=== PATIENT | female | born 1980 | race Caucasian/White ===

== ENCOUNTER 2019-06-19 17:03 | Emergency (ER) | payer OTHER, SELFPAY ==
[2019-06-19 17:13] VITALS: BP 140/81; PULSE 100; RESP 16; TEMP 37.3; O2SAT 99
--- NOTE | 2019-06-19 17:22 | ED.GENADULT ---
HPI - General Adult General Chief complaint: Dental/Oral Stated complaint: Dental/Mouth pain Time Seen by Provider: 06/19/19 17:22 Source: patient and RN notes reviewed Mode of arrival: ambulatory Limitations: no limitations History of Present Illness HPI narrative: 38-year-old female presents with complaints of diffused dental pain for 30 days. Pain increased over the last 24 hours. Orajel, anbesol, and Tylenol without relief. Denies any drainage. No fever or chills. No jaw swelling. No neck swelling. No limitation with speaking or swallowing. Has history of dental caries. Has not seen a dentist in awhile. No dental trauma. No oral lesions. Exacerbating factors consist of chewing, eating, and drinking. No relieving factors at this time. No dentures or bridges. Tolerating liquids well. Remains active. Ivette denies being , LMP 1 week ago. Some parts of this dictation were generated by voice recognition software and may contain typographical and/or grammatical inaccuracies. Related Data Home Medications Medication Instructions Recorded Confirmed albuterol sulfate [ProAir HFA] 2 puff INHALATION QID 06/19/19 06/19/19 lisinopril 20 mg PO DAILY 06/19/19 06/19/19 nicotine [Nicoderm CQ] 1 patch TRANSDERMAL DAILY 06/19/19 06/19/19 Allergies Allergy/AdvReac Type Severity Reaction Status Date / Time aspirin Allergy Mild Hives Verified 06/19/19 17:19 Penicillins Allergy Mild Hives Verified 06/19/19 17:19 clindamycin Allergy Unknown SEVERE Verified 06/24/17 19:15 VOMITING nitrofurantoin Allergy Unknown Vomiting Verified 06/19/19 17:19 ibuprofen Allergy Hives Verified 06/19/19 17:19 Contrast Media Allergy Mild Difficulty Uncoded 06/19/19 17:19 Breathing Review of Systems Review of Systems: Narrative: CONSTITUTIONAL: Denies fever, chills, sweats. EYES: Denies visual changes, redness, discharge. ENT: Denies rhinorrhea, congestion, sore throat, otalgia. Complains of diffused upper and lower dental pain. CARDIOVASCULAR: Denies chest pain, palpitations, edema. RESPIRATORY: Denies dyspnea, wheezing, cough. GASTROINTESTINAL: Denies abdominal pain, nausea, vomiting, diarrhea. GENITOURINARY: Denies dysuria, hematuria, abnormal discharge. SKIN: Denies rash or itching. MUSCULOSKELETAL: Denies acute back pain, joint pain, or myalgia. NEUROLOGIC: Denies numbness or focal weakness. PSYCHIATRIC: Denies anxiety or depression. All systems reviewed & are unremarkable except as noted in HPI and below. [facility] Past Medical History Medical History (Updated 06/20/19 @ 00:00 by Antonia Dorman) Asthma Hx of migraines Hypertension Surgical History Surgical History (Updated 06/19/19 @ 17:40 by YARELIS Gongora) H/O partial thyroidectomy History of cholecystectomy Family History Family History (Updated 06/19/19 @ 17:41 by YARELIS Gongora) Father Heart disease Brain cancer Grandparent Lung cancer Comments At time of signature, agree with nurse past medical, surgical, social, and family history. There is no relevant family history pertinent to the presenting complaint. Exam Narrative: Exam Narrative: GENERAL: This is a well-nourished, well-developed patient, in no apparent distress. Talks in full sentences ans ambulates with steady gait without dyspnea. HEAD: normocephalic, atraumatic. EYES: PERRL. Sclera clear/white. Vision is grossly intact. EARS: External ears normal, auditory canals clear and without drainage, TMs normal without perforation. Hearing grossly intact. NOSE: External nose normal with no obvious nasal discharge, nares without redness, no rhinorrhea. MOUTH: Multiple partially broken teeth with palak apical swelling, Multiple teeth with tenderness to palpation. No jaw facial swelling, No trismus. Able to open mouth fully. No neck swelling or Elia angina. No abscess to be drained. THROAT: Mucous membranes moist, posterior pharynx clear. NECK: Ne
== END 2019-06-19 18:00 | disposition home or self-care (01) ==
PROVIDERS: Emergency Provider Nurse Practitioner Family; PCP Family Medicine
DX: K08.89 Other specified disorders of teeth and supporting structures (principal); K02.9 Dental caries, unspecified; I10 Essential (primary) hypertension
CPT/HCPCS: 99213; G0463

== ENCOUNTER 2019-07-25 16:25 | Emergency (ER) | payer OTHER, SELFPAY ==
--- NOTE | ~2019-07-25 | XR_ITS ---
EXAMINATION: XR chest 2V 07/25/2019 17:18 INDICATION: Cough PROCEDURE: 2 view chest COMPARISON: 02/26/2012 FINDINGS: The lungs are clear. The cardiomediastinal silhouette is within normal limits. There are no pleural effusions. There is no pneumothorax suspected. IMPRESSION: 1: NO ACUTE CARDIOPULMONARY DISEASE. Reviewed, dictated and finalized at location A.
[2019-07-25 16:38] VITALS: BP 138/91; PULSE 91; RESP 16; TEMP 37.5; O2SAT 99
--- NOTE | 2019-07-25 16:39 | ED.GENADULT ---
HPI - General Adult General Chief complaint: Upper Respiratory Infection Stated complaint: CP Time Seen by Provider: 07/25/19 16:30 Source: patient and RN notes reviewed Mode of arrival: ambulatory Limitations: no limitations History of Present Illness HPI narrative: 38-year-old female presents with concern for cough, chest pain and back pain with coughing. Reports symptoms have been present for approximately a month. Reports persistent rhinorrhea and occasional nasal congestion. Reports symptoms started after she had a dental infection and a tooth pulled. She correlates her cough with this dental infection. Reports she was on a long course of clindamycin for her dental infection, however reports she does not think that it helped. Reports she has not taken any other medications for her symptoms other than her albuterol. Reports she last used her albuterol this morning. Reports a history of asthma. MD complaint: Upper respiratory infection Related Data Home Medications Medication Instructions Recorded Confirmed albuterol sulfate [ProAir HFA] 2 puff INHALATION QID 06/19/19 07/25/19 lisinopril 20 mg PO DAILY 06/19/19 07/25/19 fluticasone propion-salmeterol 2 inh INHALATION Q4-6H PRN 07/25/19 07/25/19 Allergies Allergy/AdvReac Type Severity Reaction Status Date / Time aspirin Allergy Mild Hives Verified 07/25/19 16:53 Penicillins Allergy Mild Hives Verified 07/25/19 16:53 ibuprofen Allergy Hives Verified 07/25/19 16:53 clindamycin AdvReac Unknown SEVERE Verified 07/25/19 16:53 VOMITING nitrofurantoin AdvReac Unknown Vomiting Verified 07/25/19 16:53 Contrast Media Allergy Mild Difficulty Uncoded 07/25/19 16:53 Breathing Review of Systems Review of Systems: Narrative: CONSTITUTIONAL: Denies malaise, chills, sweats, or fever. EYES: Denies visual changes, redness, or discharge. ENT: Reports rhinorrhea, occasional congestion. Denies sinus pain, otalgia and sore throat. CARDIOVASCULAR: Denies chest pain, palpitations, or edema. RESPIRATORY: Reports cough, chest and back pain with coughing. Denies dyspnea. GASTROINTESTINAL: Denies abdominal pain, nausea, vomiting, diarrhea SKIN: Denies rash or itching. MUSCULOSKELETAL: Denies myalgia. NEUROLOGIC: Denies headache. All systems reviewed & are unremarkable except as noted in HPI and below PMFSH Past Medical History Medical History (Updated 07/25/19 @ 17:31 by Julia Peguero NP) Asthma Hx of migraines Hypertension Surgical History Surgical History (Updated 06/19/19 @ 17:40 by YARELIS Gongora) H/O partial thyroidectomy History of cholecystectomy Family History Family History (Updated 06/19/19 @ 17:41 by YARELIS Gongora) Father Heart disease Brain cancer Grandparent Lung cancer Social History Social History Gender identity (if verbalized by the patient): Female Comments At time of signature, agree with nursing past medical, surgical, social and family history. There is no relevant family history pertinent to the presenting complaint Exam Narrative: Exam Narrative: GENERAL: Well-appearing, well-nourished, and in no acute distress. HEAD: Normocephalic EYES: PERRLA, conjunctivae clear ENT: Nares clear, turbinates erythematous, clear discharge. Mucous membranes moist. TM pearly yeh with dull light reflex bilaterally; no tragal tenderness. Oropharynx not erythematous without lesions. Tonsils not enlarged and without exudate, no drooling, no hoarseness, no trismus, uvula midline. NECK: Supple. No lymphadenopathy CHEST: Clear to auscultation, breath sounds equal. No wheezing, rhonchi, rales, or stridor. No respiratory distress, speaks in full sentences. HEART: Regular rate and rhythm. No murmur heard. SKIN: Warm, dry, no rash. NEURO: Alert and oriented x3. PSYCH: Normal mood and affect Course Course Emergency Course: Patient is aware of diagnosis, under
== END 2019-07-25 17:39 | disposition home or self-care (01) ==
PROVIDERS: Emergency Provider Nurse Practitioner
DX: J40 Bronchitis, not specified as acute or chronic (principal); I10 Essential (primary) hypertension
CPT/HCPCS: 71046; 99213; G0463

== ENCOUNTER 2019-08-27 17:53 | Emergency (ER) | payer OTHER, SELFPAY ==
[2019-08-27 18:03] VITALS: BP 160/95; PULSE 118; RESP 16; TEMP 37.4; O2SAT 100
--- NOTE | 2019-08-27 18:41 | ED.URI ---
HPI - URI/Sore Throat General Chief Complaint: Upper Respiratory Infection Stated Complaint: Sinus Pressure Time Seen by Provider: 08/27/19 18:29 Source: patient and RN notes reviewed Mode of arrival: ambulatory Limitations: no limitations History of Present Illness HPI Narrative: Patient presents today complaining of a 5-day history of sore throat, facial pressure and congestion, bilateral ear pain, productive cough. Denies fever or shortness of breath. She has been on daily prednisone and took a Z-Josh approximately 3 weeks ago for increased asthma symptoms, prescribed by her PCP. She is also been using Sudafed D, but is no longer. She has been taking Maria Luz without relief. A few months ago she was on Levaquin and clindamycin for tooth infection. States she needs most of her teeth pulled MD elicited complaint: sore throat and sinus pain Related Data Home Medications Medication Instructions Recorded Confirmed albuterol sulfate [ProAir HFA] 2 puff INHALATION QID 06/19/19 08/27/19 lisinopril 20 mg PO DAILY 06/19/19 08/27/19 albuterol sulfate 90 mcg INHALATION DIRECTED 08/27/19 08/27/19 fexofenadine-pseudoephedrine 1 tablet PO DAILY 08/27/19 08/27/19 [Wal-Fex D 12 Hour] hydrocodone-acetaminophen 1 tablet PO DIRECTED 08/27/19 08/27/19 prednisone 10 mg PO DAILY 08/27/19 08/27/19 tizanidine 4 mg PO DAILY 08/27/19 08/27/19 Allergies Allergy/AdvReac Type Severity Reaction Status Date / Time aspirin Allergy Mild Hives Verified 08/27/19 18:02 Penicillins Allergy Mild Hives Verified 08/27/19 18:02 ibuprofen Allergy Hives Verified 08/27/19 18:02 clindamycin AdvReac Unknown SEVERE Verified 08/27/19 18:02 VOMITING nitrofurantoin AdvReac Unknown Vomiting Verified 08/27/19 18:02 Contrast Media Allergy Mild Difficulty Uncoded 08/27/19 18:02 Breathing Review of Systems Review of Systems: Narrative: CONSTITUTIONAL: Denies body aches, fever, chills, or sweats. EYES: Denies visual changes, redness, or discharge. ENT: + Sore throat, bilateral ear pain, congestion, rhinorrhea, sinus pressure CARDIOVASCULAR: Denies chest pain, palpitations, or edema. RESPIRATORY: Denies dyspnea.+ Cough GASTROINTESTINAL: Denies abdominal pain, nausea, vomiting, or diarrhea. GENITOURINARY: Denies dysuria or hematuria. SKIN: Denies rash, itching, or wounds. MUSCULOSKELETAL: Denies back pain, joint pain, or myalgia. NEUROLOGIC: Denies headache, numbness, tingling, or weakness. PSYCH: Denies depression or anxiety. [facility] Past Medical History Medical History (Updated 08/27/19 @ 18:45 by Pauline Mcintosh, YARELIS, ) Asthma Hx of migraines Hypertension Surgical History Surgical History (Updated 06/19/19 @ 17:40 by YARELIS Gongora) H/O partial thyroidectomy History of cholecystectomy Family History Family History (Updated 06/19/19 @ 17:41 by YARELIS Gongora) Father Heart disease Brain cancer Grandparent Lung cancer Social History Social History Gender identity (if verbalized by the patient): Female Comments At time of signature, I have reviewed and agree with nursing past medical, surgical, social and family history unless otherwise noted. Please see nursing chart for further information. There is no relevant family history pertinent to the presenting complaint Exam Narrative: Exam Narrative: GENERAL: Well-appearing, well-nourished, and in no acute distress. HEAD: Normocephalic, atraumatic. EYES: EOMI. No redness or drainage. Conjunctivae normal. ENT: Mucous membranes pink and moist. Nares clear. No rhinorrhea. TMs normal bilaterally. Throat normal. Uvula midline. Gross dental decay. No obvious periapical abscesses noted. Maxillary sinus tenderness bilaterally. NECK: Normal AROM. Supple. No lymphadenopathy. CHEST: No respiratory distress. Clear to auscultation. HEART: Regular rate and rhythm. No murmur appreciate
== END 2019-08-27 18:49 | disposition home or self-care (01) ==
PROVIDERS: Emergency Provider Nurse Practitioner; PCP Family Medicine
DX: J30.9 Allergic rhinitis, unspecified (principal); I10 Essential (primary) hypertension
CPT/HCPCS: 87081; 87880; 99213; G0463

== ENCOUNTER 2019-09-06 18:26 | Emergency (ER) | payer OTHER, SELFPAY ==
[2019-09-06 18:34] VITALS: BP 155/87; PULSE 101; RESP 16; TEMP 37; O2SAT 99
--- NOTE | 2019-09-06 18:51 | ED.GENADULT ---
HPI - General Adult General Chief complaint: Dental/Oral Stated complaint: tooth pain Time Seen by Provider: 09/06/19 18:51 Source: patient and RN notes reviewed Mode of arrival: ambulatory Limitations: no limitations History of Present Illness HPI narrative: 38-year-old female presents with complaints of dental pain for the past 4 days. OTC medications without relief. Denies any drainage. No fever or chills. No jaw swelling. No neck swelling. No limitation with speaking or swallowing. Has history of dental caries. No dental trauma. No oral lesions. Exacerbating factors consist of chewing on LT side, eating and drinking cold items. Relieving factors not eating on LT side and avoiding cold items. No dentures or bridges. Tolerating liquids well. The patient reports they have not been diagnosed with COVID-19. The patient reports they are not waiting for the results of a COVID-19 lab test. The patient reports they do not have fever, chills, weakness, fatigue, myalgia, or facial swelling. The patient reports they do not have a new or worsening cough or shortness of breath. Denies chest pain. The patient reports they do not have any rhinorrhea, congestion, sore throat, nausea, vomiting, abdominal pain, and diarrhea. Tolerating po intake well. Denies recent traveling. Denies concerns for COVID-19 or exposures been home since [id number] order except for essential household needs and return home. At this time, patient is not suspected of having COVID-19. Some parts of this dictation were generated by voice recognition software and may contain typographical and/or grammatical inaccuracies. Related Data Home Medications Medication Instructions Recorded Confirmed albuterol sulfate [ProAir HFA] 2 puff INHALATION QID 06/19/19 08/27/19 lisinopril 20 mg PO DAILY 06/19/19 08/27/19 albuterol sulfate 90 mcg INHALATION DIRECTED 08/27/19 08/27/19 fexofenadine-pseudoephedrine 1 tablet PO DAILY 08/27/19 08/27/19 [Wal-Fex D 12 Hour] hydrocodone-acetaminophen 1 tablet PO DIRECTED 08/27/19 08/27/19 prednisone 10 mg PO DAILY 08/27/19 08/27/19 tizanidine 4 mg PO DAILY 05/09/20 05/09/20 Allergies Allergy/AdvReac Type Severity Reaction Status Date / Time aspirin Allergy Mild Hives Verified 08/27/19 18:02 Penicillins Allergy Mild Hives Verified 08/27/19 18:02 ibuprofen Allergy Hives Verified 08/27/19 18:02 clindamycin AdvReac Unknown SEVERE Verified 08/27/19 18:02 VOMITING nitrofurantoin AdvReac Unknown Vomiting Verified 08/27/19 18:02 Contrast Media Allergy Mild Difficulty Uncoded 08/27/19 18:02 Breathing Review of Systems Review of Systems: Narrative: CONSTITUTIONAL: Denies fever, chills, sweats. EYES: Denies visual changes, redness, discharge. ENT: Denies rhinorrhea, congestion, sore throat, otalgia. Complains of LT lower dental pain. CARDIOVASCULAR: Denies chest pain, palpitations, edema. RESPIRATORY: Denies dyspnea, wheezing, cough. GASTROINTESTINAL: Denies abdominal pain, nausea, vomiting, diarrhea. GENITOURINARY: Denies dysuria, hematuria, abnormal discharge. SKIN: Denies rash or itching. MUSCULOSKELETAL: Denies acute back pain, joint pain, or myalgia. NEUROLOGIC: Denies numbness or focal weakness. PSYCHIATRIC: Denies anxiety or depression. All systems reviewed & are unremarkable except as noted in HPI and below. [facility] Past Medical History Medical History Asthma Hx of migraines Hypertension Surgical History Surgical History H/O partial thyroidectomy History of cholecystectomy Family History Family History (Updated 09/06/19 @ 19:08 by YARELIS Gongora) Father Heart disease Brain cancer Hypertension Diabetes mellitus Grandparent Lung cancer Mother Diabetes mellitus Hypertension Social History Social History (Updated 09/05
== END 2019-09-06 19:12 | disposition home or self-care (01) ==
PROVIDERS: Emergency Provider Nurse Practitioner Family; PCP Family Medicine
DX: K02.9 Dental caries, unspecified (principal); I10 Essential (primary) hypertension; F17.210 Nicotine dependence, cigarettes, uncomplicated
CPT/HCPCS: 99213; G0463

== ENCOUNTER 2020-02-14 14:22 | Outpatient (CLI) | payer OTHER, SELFPAY ==
[2020-02-14 15:04] LABS: Basophils Absolute Auto 0.1 K/mm3 (0.0-0.1); Basophils Percent Auto 0.5 % (0.2-1.2); Eosinophils Absolute Auto 0.4 K/mm3 (0-0.3); Eosinophils Percent Auto 2.7 % (0-4.4); Hematocrit 43.2 % (37.0-47.0); Hemoglobin 14.5 g/dL (12.0-15.0); Immature Granulocyte Absolute 0.12 K/mm3 (0.00-0.031); Immature Granulocyte Percent A 0.8 % (0-0.5); Lymphocytes Absolute Auto 4.42 K/mm3 (0.9-3.2); Lymphocytes Percent Auto 30.8 % (18.3-44.2); Mean Corpuscular HGB Conc 33.6 g/dl (32-36); Mean Corpuscular Hemoglobin 30.9 pg (26-34); Mean Corpuscular Volume 91.9 fl (80-100); Monocytes Absolute Auto 1.4 K/mm3 (0.1-0.6); Monocytes Percent Auto 9.8 % (2.6-8.5); Neutrophils Absolute Auto 7.9 K/mm3 (1.3-6.7); Neutrophils Percent Auto 55.4 % (45.5-73.1); Platelet Count Result 333 k/mm3 (150-375); Red Cell Distribution Width 12.4 % (11.5-14.5); White Blood Count 14.3 K/mm3 (4.5-10.0)
[2020-02-14 16:02] LABS: Hemoglobin A1C 5.1 % (<5.7)
== END 2020-02-14 14:23 | disposition home or self-care (01) ==
PROVIDERS: PCP Family Medicine; Visit Provider Nurse Practitioner Adult Health
DX: R00.0 Tachycardia, unspecified (principal); Z68.35 Body mass index [BMI] 35.0-35.9, adult
CPT/HCPCS: 36415; 83036; 84443; 85025

== ENCOUNTER 2020-05-10 06:50 | Outpatient (NON) | payer OTHER, SELFPAY ==
[2020-05-10 21:44] LABS: SARS-CoV-2 RNA PCR Negative
== END 2020-05-10 06:51 ==
PROVIDERS: Family Provider Family Medicine; PCP Family Medicine; Visit Provider Family Medicine
DX: R68.89 Other general symptoms and signs (principal); Z20.822 Contact with and (suspected) exposure to COVID-19
CPT/HCPCS: C9803; U0003; U0005

== ENCOUNTER → 2020-06-16 06:55 | Outpatient (CLI) | payer OTHER, SELFPAY ==
[2020-06-16 23:33] LABS: SARS-CoV-2 RNA PCR Negative
== END ==
PROVIDERS: PCP Family Medicine; Visit Provider Family Medicine
DX: R68.89 Other general symptoms and signs (principal); Z20.822 Contact with and (suspected) exposure to COVID-19
CPT/HCPCS: C9803; U0003; U0005

== ENCOUNTER → 2020-09-29 07:15 | Outpatient (CLI) | payer OTHER, SELFPAY ==
[2020-09-29 17:56] LABS: SARS-CoV-2 RNA PCR Negative
== END ==
PROVIDERS: PCP Family Medicine; Visit Provider Family Medicine
DX: R68.89 Other general symptoms and signs (principal); Z20.822 Contact with and (suspected) exposure to COVID-19
CPT/HCPCS: C9803; U0003; U0005

== ENCOUNTER 2020-10-02 14:42 | Outpatient (CLI) | payer OTHER, SELFPAY ==
--- NOTE | ~2020-10-02 | XR_ITS ---
XR chest 2V DATE: 10/02/2020 15:12 INDICATION: Cough. Hypertension. Smoker. TECHNIQUE: PA and lateral views COMPARISON: 07/25/2019 PA and lateral views FINDINGS: Normal heart size. No hilar or mediastinal enlargement. No pulmonary infiltrate or consolid ation or pleural effusion or pulmonary vascular congestion or pneumothorax. Interval clips, right upper quadrant, consistent with cholecystectomy. IMPRESSION: No active cardiopulmonary or disease Status post cholecystectomy. Reviewed, dictated and finalized at location A.
[2020-10-02 15:05] LABS: Basophils Absolute Auto 0.1 K/mm3 (0.0-0.1); Basophils Percent Auto 0.4 % (0.2-1.2); Eosinophils Absolute Auto 0.1 K/mm3 (0-0.3); Hematocrit 37.2 % (37.0-47.0); Hemoglobin 12.6 g/dL (12.0-15.0); Immature Granulocyte Percent A 0.7 % (0-0.5); Lymphocytes Absolute Auto 4.61 K/mm3 (0.9-3.2); Mean Corpuscular HGB Conc 33.9 g/dl (32-36); Mean Corpuscular Hemoglobin 31.1 pg (26-34); Mean Corpuscular Volume 91.9 fl (80-100); Mean Platelet Volume 9.9 fl (7.4-10.4); Monocytes Absolute Auto 1.6 K/mm3 (0.1-0.6); Monocytes Percent Auto 11.8 % (2.6-8.5); Neutrophils Absolute Auto 7.4 K/mm3 (1.3-6.7); Neutrophils Percent Auto 53.1 % (45.5-73.1); Platelet Count Result 328 k/mm3 (150-375); Red Blood Count 4.05 M/mm3 (4.2-5.4); Red Cell Distribution Width 11.9 % (11.5-14.5)
[2020-10-02 15:22] LABS: Atypical Lymphocytes Present; Platelet Estimate Adequate (Adequate)
== END 2020-10-02 14:43 | disposition home or self-care (01) ==
PROVIDERS: PCP Family Medicine; Visit Provider Family Medicine
DX: J20.9 Acute bronchitis, unspecified (principal); Z90.49 Acquired absence of other specified parts of digestive tract
CPT/HCPCS: 36415; 71046; 85025

== ENCOUNTER 2020-10-10 12:33 | Outpatient (CLI) | payer OTHER, SELFPAY ==
[2020-10-10 13:17] LABS: Basophils Absolute Auto 0.1 K/mm3 (0.0-0.1); Basophils Percent Auto 0.3 % (0.2-1.2); Eosinophils Absolute Auto 0.1 K/mm3 (0-0.3); Eosinophils Percent Auto 0.8 % (0-4.4); Hematocrit 41.9 % (37.0-47.0); Hemoglobin 14.1 g/dL (12.0-15.0); Immature Granulocyte Absolute 0.11 K/mm3 (0.00-0.031); Immature Granulocyte Percent A 0.7 % (0-0.5); Lymphocytes Absolute Auto 3.86 K/mm3 (0.9-3.2); Lymphocytes Percent Auto 24.8 % (18.3-44.2); Mean Corpuscular HGB Conc 33.7 g/dl (32-36); Mean Corpuscular Hemoglobin 31.3 pg (26-34); Mean Corpuscular Volume 93.1 fl (80-100); Mean Platelet Volume 9.5 fl (7.4-10.4); Monocytes Absolute Auto 1.6 K/mm3 (0.1-0.6); Neutrophils Absolute Auto 9.9 K/mm3 (1.3-6.7); Neutrophils Percent Auto 63.4 % (45.5-73.1); Platelet Count Result 329 k/mm3 (150-375); Red Cell Distribution Width 12.5 % (11.5-14.5); White Blood Count 15.5 K/mm3 (4.5-10.0)
[2020-10-10 14:00] LABS: Monoscreen Negative (Negative); Negative Monotest Control Negative (Negative); Positive Monotest Control Positive (Positive)
[2020-10-13 21:09] LABS: Anti Streptolysin O Screen <50 IU/mL (<200)
== END 2020-10-10 12:34 | disposition home or self-care (01) ==
PROVIDERS: PCP Family Medicine; Visit Provider Family Medicine
DX: J02.9 Acute pharyngitis, unspecified (principal)
CPT/HCPCS: 36415; 85025; 86060; 86308; 87070; 87081

== ENCOUNTER 2020-10-23 15:18 | Outpatient (CLI) | payer OTHER, SELFPAY ==
[2020-10-23 17:30] LABS: Monoscreen Negative (Negative); Negative Monotest Control Negative (Negative); Positive Monotest Control Positive (Positive)
== END 2020-10-23 15:19 | disposition home or self-care (01) ==
PROVIDERS: PCP Family Medicine; Visit Provider Family Medicine
DX: J02.9 Acute pharyngitis, unspecified (principal)
CPT/HCPCS: 36415; 86308

== ENCOUNTER 2020-10-24 16:48 | Outpatient (CLI) | payer OTHER, SELFPAY ==
--- NOTE | ~2020-10-24 | XR_ITS ---
EXAMINATION: XR chest 2V 10/24/2020 17:08 INDICATION: Cough for 2 months PROCEDURE: 2 view chest COMPARISON: Comparison to multiple prior studies sequentially, with oldest reviewed study dated 01/18. FINDINGS: The lungs are clear. The cardiomediastinal silhouette is within normal limits. There are no pleural effusions. There is no pneumothorax suspected. IMPRESSION: 1: NO ACUTE CARDIOPULMONARY DISEASE. Reviewed, dictated and finalized at location A.
== END 2020-10-24 16:49 | disposition home or self-care (01) ==
LOC: ANHIMG 16:52
PROVIDERS: PCP Family Medicine; Visit Provider Family Medicine
DX: R05 Cough (principal)
CPT/HCPCS: 71046

== ENCOUNTER 2020-10-25 14:31 | Outpatient (CLI) | payer OTHER, SELFPAY ==
[2020-10-25 14:50] LABS: Basophils Percent Auto 0.2 % (0.2-1.2); Eosinophils Absolute Auto 0.2 K/mm3 (0-0.3); Eosinophils Percent Auto 1.1 % (0-4.4); Hemoglobin 13.2 g/dL (12.0-15.0); Immature Granulocyte Absolute 0.15 K/mm3 (0.00-0.031); Immature Granulocyte Percent A 0.9 % (0-0.5); Lymphocytes Absolute Auto 4.74 K/mm3 (0.9-3.2); Lymphocytes Percent Auto 28.6 % (18.3-44.2); Mean Corpuscular HGB Conc 31.4 g/dl (32-36); Mean Corpuscular Hemoglobin 32.4 pg (26-34); Mean Corpuscular Volume 102.9 fl (80-100); Mean Platelet Volume 9.8 fl (7.4-10.4); Monocytes Absolute Auto 1.6 K/mm3 (0.1-0.6); Monocytes Percent Auto 9.8 % (2.6-8.5); Neutrophils Absolute Auto 9.8 K/mm3 (1.3-6.7); Neutrophils Percent Auto 59.4 % (45.5-73.1); Platelet Count Result 207 k/mm3 (150-375); Red Blood Count 4.08 M/mm3 (4.2-5.4); Red Cell Distribution Width 12.8 % (11.5-14.5); White Blood Count 16.6 K/mm3 (4.5-10.0)
[2020-10-25 15:03] LABS: Atypical Lymphocytes Present; Platelet Estimate Adequate (Adequate)
[2020-10-25 15:04] LABS: Smudge Cells FEW
== END 2020-10-25 14:32 | disposition home or self-care (01) ==
LOC: ANHLAB 14:33
PROVIDERS: PCP Family Medicine; Visit Provider Family Medicine
DX: D72.829 Elevated white blood cell count, unspecified (principal); B27.90 Infectious mononucleosis, unspecified without complication
CPT/HCPCS: 36415; 85025

== ENCOUNTER 2020-10-31 15:00 | Emergency (ER) | payer OTHER, SELFPAY ==
[2020-10-31 15:09] VITALS: BP 146/84; PULSE 104; RESP 16; TEMP 36.8; O2SAT 99
--- NOTE | 2020-10-31 15:25 | ED.GENADULT ---
HPI - General Adult General Chief complaint: Upper Respiratory Infection Stated complaint: SORE THROAT Time Seen by Provider: 10/31/20 15:15 Source: patient and RN notes reviewed Mode of arrival: ambulatory Limitations: no limitations History of Present Illness HPI narrative: 40-year-old female presents with complaints of throat pain and irritation for the past 5 weeks. ?Ivette reports mouth feels as if it is on fire. ?Pamprin, Chloraseptic spray, and throat lozenges without relief. No discoloration or drainage. No high fevers, drooling, neck or throat swelling. Exacerbation factors eating and drinking certain items. No rhinorrhea or nasal congestion. No nausea, vomiting, or abdominal pain. Tolerating liquids well. Denies dyspnea, difficulty swallowing, jaw pain, dental pain, facial pain, foreign body sensation, and rash. LMP 4 days ago. Remains active. The patient reports she has not been diagnosed with COVID-19. The patient reports she is not waiting for the results of a COVID-19 lab test. ?The patient reports she does not have chills, weakness, or fatigue. ?The patient reports she does not have a new or worsening cough or shortness of breath. ?Denies chest pain. ?The patient reports she does not have any loss of taste or smell, and diarrhea. Denies recent traveling. ?Denies concerns for COVID-19 or exposures. ?At this time, the patient is not suspected of having COVID-19. Some parts of this dictation were generated by voice recognition software and may contain typographical and/or grammatical inaccuracies. Related Data Home Medications Medication Instructions Recorded Confirmed albuterol sulfate [ProAir HFA] 2 puff INHALATION QID 06/19/19 08/27/19 lisinopril 20 mg PO DAILY 06/19/19 10/31/20 albuterol sulfate 90 mcg INHALATION DIRECTED 08/27/19 08/27/19 fexofenadine-pseudoephedrine 1 tablet PO DAILY 08/27/19 08/27/19 [Wal-Fex D 12 Hour] prednisone 10 mg PO DAILY 08/27/19 08/27/19 tizanidine 4 mg PO DAILY 08/27/19 08/27/19 amitriptyline 25 mg PO HS 10/31/20 10/31/20 carvedilol 3.125 mg PO DAILY 10/31/20 10/31/20 Allergies Allergy/AdvReac Type Severity Reaction Status Date / Time aspirin Allergy Mild Hives Verified 08/27/19 18:02 Penicillins Allergy Mild Hives Verified 08/27/19 18:02 ibuprofen Allergy Hives Verified 08/27/19 18:02 clindamycin AdvReac Unknown SEVERE Verified 08/27/19 18:02 VOMITING nitrofurantoin AdvReac Unknown Vomiting Verified 08/27/19 18:02 Contrast Media Allergy Mild Difficulty Uncoded 08/27/19 18:02 Breathing Review of Systems Review of Systems: Narrative: CONSTITUTIONAL: Denies fever, chills, sweats. EYES: Denies visual changes, redness, discharge. ENT: Denies rhinorrhea, congestion, itching, otalgia. Complains of sore throat, and irritation. CARDIOVASCULAR: Denies chest pain, palpitations, edema. RESPIRATORY: Denies dyspnea, wheezing, cough. GASTROINTESTINAL: Denies abdominal pain, nausea, vomiting, diarrhea. SKIN: Denies rash or itching. MUSCULOSKELETAL: Denies acute back pain, joint pain, or myalgia. NEUROLOGIC: Denies numbness or focal weakness. PSYCHIATRIC: Denies anxiety or depression. All systems reviewed & are unremarkable except as noted in HPI and below. [facility] Past Medical History Medical History (Updated 11/01/20 @ 00:01 by Antonia Dorman) Asthma Hx of migraines Hypertension Surgical History Surgical History H/O partial thyroidectomy History of cholecystectomy Family History Family History Father Heart disease Brain cancer Hypertension Diabetes mellitus Grandparent Lung cancer Mother Diabetes mellitus Hypertension Social History Social History Smoking packs per day: 0.5 Smoking cigarettes per day: 10.0 Years smoked: 18 Smoking pa
== END 2020-10-31 15:50 | disposition home or self-care (01) ==
PROVIDERS: Emergency Provider Nurse Practitioner Family; PCP Family Medicine
DX: B37.0 Candidal stomatitis (principal); F17.210 Nicotine dependence, cigarettes, uncomplicated; J45.909 Unspecified asthma, uncomplicated; I10 Essential (primary) hypertension
CPT/HCPCS: 87081; 87880; 99213; G0463

== ENCOUNTER 2021-05-30 16:27 | Outpatient (CLI) | payer OTHER, SELFPAY ==
[2021-05-30 17:14] LABS: Basophils Percent Auto 0.5 % (0.2-1.2); Eosinophils Absolute Auto 0.2 K/mm3 (0-0.3); Eosinophils Percent Auto 2.4 % (0-4.4); Hematocrit 43.1 % (37.0-47.0); Hemoglobin 14.5 g/dL (12.0-15.0); Immature Granulocyte Absolute 0.03 K/mm3 (0.00-0.031); Immature Granulocyte Percent A 0.4 % (0-0.5); Lymphocytes Absolute Auto 1.69 K/mm3 (0.9-3.2); Lymphocytes Percent Auto 20.2 % (18.3-44.2); Mean Corpuscular HGB Conc 33.6 g/dl (32-36); Mean Corpuscular Hemoglobin 30.7 pg (26-34); Mean Corpuscular Volume 91.1 fl (80-100); Mean Platelet Volume 10.5 fl (7.4-10.4); Monocytes Percent Auto 11.3 % (2.6-8.5); Neutrophils Absolute Auto 5.5 K/mm3 (1.3-6.7); Neutrophils Percent Auto 65.2 % (45.5-73.1); Platelet Count Result 280 k/mm3 (150-375); Red Blood Count 4.73 M/mm3 (4.2-5.4); White Blood Count 8.4 K/mm3 (4.5-10.0)
[2021-05-30 18:17] LABS: Alanine Aminotransferase 15 U/L (4-35); Albumin Level 4.2 g/dL (3.5-5.1); Alkaline Phosphatase 64 U/L (38-126); Anion Gap 6 mmol/L (8-16); Aspartate Amino Transferase 24 U/L (14-36); Bilirubin,Total 0.5 mg/dL (0.2-1.3); Blood Urea Nitrogen 11 mg/dL (7-17); Carbon Dioxide 22 mmol/L (22-30); Chloride 110 mmol/L (98-107); Cholesterol 158 mg/dL (0-200); Estimated Glomerular Filt Rate > 60; Glucose 101 mg/dL (65-110); HDL Direct 28 mg/dL; Potassium 4.2 mmol/L (3.4-5.0); Sodium 138 mmol/L (137-145); Triglycerides 129 mg/dL (<150)
[2021-05-30 18:25] LABS: LDL Cholesterol Direct 94 mg/dL
[2021-05-30 21:07] LABS: Hemoglobin A1C 5.4 % (<5.7)
== END 2021-05-30 16:28 | disposition home or self-care (01) ==
LOC: ANHLAB 16:30
PROVIDERS: PCP Family Medicine; Visit Provider Family Medicine
DX: E66.9 Obesity, unspecified (principal)
CPT/HCPCS: 36415; 80053; 80061; 83036; 85025

== ENCOUNTER 2021-08-27 19:03 | Emergency (ER) | payer OTHER, SELFPAY ==
[2021-08-27 19:12] VITALS: BP 123/68; PULSE 101; RESP 16; TEMP 37.3; O2SAT 99
--- NOTE | 2021-08-27 19:16 | ED.SKABFB ---
HPI - Skin/Abscess/Foreign Bdy General Chief complaint: Skin/Abscess/Foreign Body Stated complaint: Tick Bite Time Seen by Provider: 08/27/21 19:16 Source: patient Mode of arrival: ambulatory Limitations: no limitations History of Present Illness HPI narrative: 40-year-old female presents with complaint of tick bite x3 days. Reports that she found it several hours after doing yard work due to itching. Reports that her son removed it for her. States that the area has been very itchy and is progressively getting more swollen. She has no other symptoms. Afebrile. All systems reviewed and negative except as noted above. Related Data Home Medications Medication Instructions Recorded Confirmed albuterol sulfate [ProAir HFA] 2 puff INHALATION QID 06/19/19 08/27/21 albuterol sulfate 90 mcg INHALATION DIRECTED 08/27/19 08/27/21 carvedilol 3.125 mg PO DAILY 10/31/20 08/27/21 lisinopril 40 mg PO DAILY 08/27/21 08/27/21 pantoprazole 20 mg PO DAILY 08/27/21 08/27/21 rizatriptan 5 mg PO DAILY 08/27/21 08/27/21 verapamil 80 mg PO DAILY 08/27/21 08/27/21 Allergies Allergy/AdvReac Type Severity Reaction Status Date / Time aspirin Allergy Mild Hives Verified 08/27/21 19:12 Penicillins Allergy Mild Hives Verified 08/27/21 19:12 ibuprofen Allergy Hives Verified 08/27/21 19:12 clindamycin AdvReac Unknown SEVERE Verified 08/27/21 19:12 VOMITING nitrofurantoin AdvReac Unknown Vomiting Verified 08/27/21 19:12 Contrast Media Allergy Mild Difficulty Uncoded 08/27/21 19:12 Breathing Review of Systems Review of Systems: CONSTITUTIONAL: Denies fever, chills, or sweats. EYES: Denies visual changes, redness, or discharge. ENT: Denies rhinorrhea, congestion, sore throat, or otalgia. CARDIOVASCULAR: Denies chest pain, palpitations, or edema. RESPIRATORY: Denies cough or dyspnea. GASTROINTESTINAL: Denies abdominal pain, nausea, vomiting, or diarrhea. GENITOURINARY: Denies dysuria or hematuria. SKIN: Denies rash. Reports itchy tick bite with redness and swelling. MUSCULOSKELETAL: Denies back pain, joint pain, or myalgia. NEUROLOGIC: Denies headache, numbness, or weakness. PSYCHIATRIC: Denies anxiety or depression. All other systems reviewed are negative, except as documented in HPI. [facility] Past Medical History Medical History (Updated 08/27/21 @ 19:21 by Kenya Guo NP) Asthma Hx of migraines Hypertension Surgical History Surgical History H/O partial thyroidectomy History of cholecystectomy Family History Family History Father Heart disease Brain cancer Hypertension Diabetes mellitus Grandparent Lung cancer Mother Diabetes mellitus Hypertension Social History Social History Smoking packs per day: 0.5 Smoking cigarettes per day: 10.0 Years smoked: 18 Smoking pack-years: 9.00 Smoking status: Current every day smoker Tobacco type: cigarettes Second hand tobacco smoke exposure: No Alcohol intake: current Gender identity (if verbalized by the patient): Female Comments At time of signature, agree with nursing past medical, surgical, social and family history. There is no relevant family history pertinent to the presenting complaint. Exam Narrative: GENERAL: This is a well-nourished, well-developed patient, in no apparent distress. HEAD: normocephalic, atraumatic. EYES: PERRL. Sclera clear/white. Vision is grossly intact. EARS: External ears normal NOSE: External nose normal NECK: Neck supple, non-tender without lymphadenopathy, masses or thyromegaly. CARDIOVASCULAR: Regular rate and rhythm without murmurs, gallops, or rubs. RESPIRATORY: Clear to auscultation. Breath sounds equal bilaterally. No wheezes, rales, or rhonchi. SKIN: warm, Dry, intact with no rash, good texture and turgor. There is an e
== END 2021-08-27 19:26 | disposition home or self-care (01) ==
PROVIDERS: Emergency Provider Nurse Practitioner Family
DX: S20.462A Insect bite (nonvenomous) of left back wall of thorax, initial encounter (principal); W57.XXXA Bitten or stung by nonvenomous insect and other nonvenomous arthropods, initial encounter; J45.909 Unspecified asthma, uncomplicated; I10 Essential (primary) hypertension; Z90.89 Acquired absence of other organs
CPT/HCPCS: 99213; G0463

== ENCOUNTER 2021-11-03 16:52 | Emergency (ER) | payer OTHER, SELFPAY ==
[2021-11-03 17:25] VITALS: BP 127/71; PULSE 78; RESP 16; TEMP 36.6; O2SAT 100
--- NOTE | 2021-11-03 17:40 | ED.URI ---
HPI - URI/Sore Throat General Chief Complaint: Upper Respiratory Infection Stated Complaint: URI Time Seen by Provider: 11/03/21 17:40 Source: patient and RN notes reviewed Mode of arrival: ambulatory Limitations: no limitations History of Present Illness HPI Narrative: 41-year-old female presents to the [facility] with complaints of 3 weeks of sinus congestion and pressure. Has had ear pressure. History of chronic sinus issues. Takes Singulair every day. No other treatment prior to arrival. Denies fevers, chest pain, abdominal pain. No problems breathing Onset (ago): week(s) (3) Related Data Home Medications Medication Instructions Recorded Confirmed albuterol sulfate 90 mcg/actuation 2 puff inhalation QID 06/19/19 08/27/21 aerosol inhaler (ProAir HFA) albuterol sulfate 90 mcg/actuation 90 mcg inhalation DIRECTED 08/27/19 08/27/21 aerosol inhaler carvedilol 3.125 mg tablet 3.125 mg PO DAILY 10/31/20 08/27/21 lisinopril 40 mg tablet 40 mg PO DAILY 08/27/21 08/27/21 rizatriptan 5 mg tablet 5 mg PO DAILY 08/27/21 08/27/21 verapamil 80 mg tablet 80 mg PO DAILY 08/27/21 08/27/21 cyclobenzaprine 5 mg tablet tablet 11/03/21 famotidine 20 mg tablet tablet 11/03/21 montelukast 10 mg tablet tablet 11/03/21 Allergies Allergy/AdvReac Type Severity Reaction Status Date / Time aspirin Allergy Mild Hives Verified 11/03/21 17:44 Penicillins Allergy Mild Hives Verified 11/03/21 17:44 ibuprofen Allergy Hives Verified 11/03/21 17:44 clindamycin AdvReac Unknown SEVERE Verified 11/03/21 17:44 VOMITING nitrofurantoin AdvReac Unknown Vomiting Verified 11/03/21 17:44 Contrast Media Allergy Mild Difficulty Uncoded 11/03/21 17:44 Breathing Review of Systems Review of Systems: All systems reviewed & are unremarkable except as noted in HPI and below Constitutional: Constitutional: Reports no additional constitutional complaints, Denies chills and Denies fever(s) Eyes: Eyes: Reports no additional eye complaints ENT: Reports as per HPI and Reports nasal congestion Cardiovascular: Cardiovascular: Reports no additional cardiovascular complaints Respiratory: Respiratory: Reports no additional respiratory complaints Gastrointestinal: Gastrointestinal: Reports no additional gastrointestinal complaints Musculoskeletal: Musculoskeletal: Reports no additional musculoskeletal complaints Integumentary/Breasts: Skin/Breast: Reports system reviewed and no additional complaints, except as docu Neurologic: Reports system reviewed and no additional complaints, except as documented Psychiatric: Psychiatric: Reports no additional psychiatric complaints Allergic/Immunologic: Allergic/Immunologic: Reports no additional allergic/immunologic complaints [facility] Past Medical History Medical History (Updated 11/04/21 @ 08:20 by Julia Cox APRN) Asthma Hx of migraines Hypertension Surgical History Surgical History H/O partial thyroidectomy History of cholecystectomy Family History Family History Father Heart disease Brain cancer Hypertension Diabetes mellitus Grandparent Lung cancer Mother Diabetes mellitus Hypertension Social History Social History Smoking packs per day: 0.5 Smoking cigarettes per day: 10.0 Years smoked: 18 Smoking pack-years: 9.00 Smoking status: Current every day smoker Tobacco type: cigarettes Second hand tobacco smoke exposure: No Alcohol intake: current Gender identity (if verbalized by the patient): Female Comments At the time of my signature, I reviewed and agree with the nursing past medical, surgical, social, and family history. There is no relevant family history pertinent to the patient complaint. Exam Const: General: healthy appearing, no acute distress
== END 2021-11-03 17:53 | disposition home or self-care (01) ==
PROVIDERS: Emergency Provider Nurse Practitioner; PCP Internal Medicine
DX: J32.9 Chronic sinusitis, unspecified (principal); F17.210 Nicotine dependence, cigarettes, uncomplicated; J45.909 Unspecified asthma, uncomplicated; I10 Essential (primary) hypertension
CPT/HCPCS: 99213; G0463

== ENCOUNTER 2022-03-08 18:13 | Emergency (ER) | payer OTHER, SELFPAY ==
[2022-03-08 20:12] VITALS: BP 140/86; PULSE 80; RESP 16; TEMP 36.2; O2SAT 100
--- NOTE | 2022-03-08 20:50 | ED.URI ---
HPI - URI/Sore Throat General Chief Complaint: Upper Respiratory Infection Stated Complaint: sore throat Time Seen by Provider: 03/08/22 20:50 Source: patient Mode of arrival: ambulatory Limitations: no limitations History of Present Illness HPI Narrative: Ivette is a 41-year-old female patient presenting to the clinic today with complaints of a sore throat x1 week. She reports that she has also had a slight runny nose and some congestion with some pressure in her sinuses. She denies any fever or chills. States the back of her throat is burning and it is difficult to swallow. She denies any recent use of antibiotics MD elicited complaint: sore throat and nasal congestion Related Data Home Medications Medication Instructions Recorded Confirmed albuterol sulfate 90 mcg/actuation 2 puff inhalation QID 06/19/19 08/27/21 aerosol inhaler (ProAir HFA) albuterol sulfate 90 mcg/actuation 90 mcg inhalation DIRECTED 08/27/19 08/27/21 aerosol inhaler carvedilol 3.125 mg tablet 3.125 mg PO DAILY 10/31/20 08/27/21 lisinopril 40 mg tablet 40 mg PO DAILY 08/27/21 08/27/21 rizatriptan 5 mg tablet 5 mg PO DAILY 08/27/21 08/27/21 verapamil 80 mg tablet 80 mg PO DAILY 08/27/21 08/27/21 cyclobenzaprine 5 mg tablet tablet 11/03/21 famotidine 20 mg tablet tablet 11/03/21 montelukast 10 mg tablet tablet 11/03/21 Allergies Allergy/AdvReac Type Severity Reaction Status Date / Time aspirin Allergy Mild Hives Verified 11/03/21 17:44 Penicillins Allergy Mild Hives Verified 11/03/21 17:44 ibuprofen Allergy Hives Verified 11/03/21 17:44 clindamycin AdvReac Unknown SEVERE Verified 11/03/21 17:44 VOMITING nitrofurantoin AdvReac Unknown Vomiting Verified 11/03/21 17:44 Contrast Media Allergy Mild Difficulty Uncoded 11/03/21 17:44 Breathing Review of Systems Review of Systems: Pertinent positives per HPI. Patient denies any fever, chills, rash, headache, visual changes, dizziness, cough, shortness of breath, chest pain, palpitations, nausea, vomiting, diarrhea, constipation, abdominal pain, or any urinary issues. PMF Past Medical History Medical History Asthma Hx of migraines Hypertension Surgical History Surgical History H/O partial thyroidectomy History of cholecystectomy Family History Family History Father Heart disease Brain cancer Hypertension Diabetes mellitus Grandparent Lung cancer Mother Diabetes mellitus Hypertension Social History Social History Smoking packs per day: 0.5 Smoking cigarettes per day: 10.0 Years smoked: 18 Smoking pack-years: 9.00 Smoking status: Current every day smoker Tobacco type: cigarettes Second hand tobacco smoke exposure: No Alcohol intake: current Gender identity (if verbalized by the patient): Female Comments At the time of my signature, I reviewed and agree with the nursing past medical, surgical, social, and family history. There is no relevant family history pertinent to the patient complaint. Exam Narrative: General: Well-developed, well nourished, in no apparent distress Head: Normocephalic, atraumatic Eyes: Pupils equally round and reactive to light bilaterally, EOM intact, sclera and conjunctive clear, no discharge, lids normal Ears: TMs intact and clear, ear canals clear, no drainage, grossly hearing normal. Nose: Nares patent, clear nasal discharge, no inflammation, no sinus tenderness. Mouth: Oral pharynx without lesions or masses, good dentition, MMM. oropharynx beefy red with yellow plaque-like lesions to the top of the soft palate. Neck: Supple, trachea midline, mild enlargement of anterior or posterior cervical nodes, no thyroid masses or goiter palpable.
== END 2022-03-08 21:02 | disposition home or self-care (01) ==
PROVIDERS: Emergency Provider Nurse Practitioner Family; PCP Family Medicine
DX: B37.0 Candidal stomatitis (principal); F17.210 Nicotine dependence, cigarettes, uncomplicated; J45.909 Unspecified asthma, uncomplicated; I10 Essential (primary) hypertension; Z90.89 Acquired absence of other organs
CPT/HCPCS: 87081; 87804; 87880; 99213; G0463

== ENCOUNTER 2022-03-18 14:09 | Emergency (ER) | payer OTHER, SELFPAY ==
[2022-03-18 14:56] VITALS: BP 140/59; PULSE 96; RESP 16; TEMP 36.3; O2SAT 99
--- NOTE | 2022-03-18 15:27 | ED.URI ---
HPI - URI/Sore Throat General Chief Complaint: Upper Respiratory Infection Stated Complaint: sore throat Time Seen by Provider: 03/18/22 15:28 History of Present Illness HPI Narrative: 41-year-old female presenting for complaint of sinus pressure and congestion worsening over the past 2 weeks. Reports cough is productive of márquez sputum, throat feels like it is burning. She endorses pressure to her teeth, bilateral jaw, nose and left ear. She has not been taking anything for symptoms. Denies increased shortness of breath, wheezing, nausea, vomiting, diarrhea, fevers or chills. Related Data Home Medications Medication Instructions Recorded Confirmed albuterol sulfate 90 mcg/actuation 2 puff inhalation QID 06/19/19 03/18/22 aerosol inhaler (ProAir HFA) albuterol sulfate 90 mcg/actuation 90 mcg inhalation DIRECTED 08/27/19 03/18/22 aerosol inhaler lisinopril 40 mg tablet 40 mg PO DAILY 08/27/21 03/18/22 cyclobenzaprine 5 mg tablet 1 tablet PO DAILY 11/03/21 03/18/22 montelukast 10 mg tablet 1 tablet PO DAILY 11/03/21 03/18/22 pantoprazole 40 mg tablet,delayed 40 mg PO QAM 03/18/22 03/18/22 release (Protonix) phentermine 30 mg capsule 30 mg PO DAILY 03/18/22 03/18/22 Allergies Allergy/AdvReac Type Severity Reaction Status Date / Time aspirin Allergy Mild Hives Verified 03/18/22 15:04 Penicillins Allergy Mild Hives Verified 03/18/22 15:04 ibuprofen Allergy Hives Verified 03/18/22 15:04 clindamycin AdvReac Unknown SEVERE Verified 03/18/22 15:04 VOMITING nitrofurantoin AdvReac Unknown Vomiting Verified 03/18/22 15:04 Contrast Media Allergy Mild Difficulty Uncoded 03/18/22 15:04 Breathing Review of Systems Review of Systems: CONSTITUTIONAL: Denies body aches, fever, chills, or sweats. EYES: Denies visual changes, redness, or discharge. ENT: Reports rhinorrhea, congestion, otalgia. CARDIOVASCULAR: Denies chest pain, palpitations, or edema. RESPIRATORY: Denies dyspnea. GASTROINTESTINAL: Denies abdominal pain, nausea, vomiting, or diarrhea. SKIN: Denies rash, itching, or wounds. MUSCULOSKELETAL: Denies back pain, joint pain, or myalgia. NEUROLOGIC: Reports headache PMFSH Past Medical History Medical History Asthma Hx of migraines Hypertension Surgical History Surgical History H/O partial thyroidectomy History of cholecystectomy Family History Family History Father Heart disease Brain cancer Hypertension Diabetes mellitus Grandparent Lung cancer Mother Diabetes mellitus Hypertension Social History Social History Smoking packs per day: 0.5 Smoking cigarettes per day: 10.0 Years smoked: 18 Smoking pack-years: 9.00 Smoking status: Current every day smoker Tobacco type: cigarettes Second hand tobacco smoke exposure: No Alcohol intake: current Gender identity (if verbalized by the patient): Female Exam Narrative: GENERAL: Ill-appearing, no acute distress. EYES: conjunctivae clear ENT: Mucous membranes moist. Sinus congestion. TMs pearly yeh with normal light reflex bilaterally; no tragal tenderness. Oropharynx erythematous without lesions. No drooling, no hoarseness, no trismus, uvula midline. No tripod positioning, hot potato voice, or soft palate swelling. NECK: Supple. No lymphadenopathy CHEST: Clear to auscultation, breath sounds equal. No respiratory distress, speaks in full sentences. HEART: Regular rate and rhythm. No murmur heard. SKIN: Warm, dry, no rash. NEURO: Alert and oriented x3. Course Course Emergency Course: Patient is aware of diagnosis, understands and agrees to treatment plan. Anticipatory guidance given. Patient agrees to follow-up as directed and is aware of reasons to
== END 2022-03-18 15:44 | disposition home or self-care (01) ==
PROVIDERS: Emergency Provider Nurse Practitioner Family; PCP Family Medicine
DX: J06.9 Acute upper respiratory infection, unspecified (principal); I10 Essential (primary) hypertension; F17.210 Nicotine dependence, cigarettes, uncomplicated
CPT/HCPCS: 99213; G0463

== ENCOUNTER 2022-06-13 13:24 | Emergency (ER) | payer OTHER, SELFPAY ==
[2022-06-13 13:35] VITALS: BP 148/84; PULSE 96; RESP 12; TEMP 36.8; O2SAT 100
--- NOTE | 2022-06-13 14:38 | ED.URI ---
HPI - URI/Sore Throat General Chief Complaint: Upper Respiratory Infection Stated Complaint: Sore Throat Time Seen by Provider: 06/13/22 14:42 Source: patient, RN notes reviewed and old records reviewed Mode of arrival: ambulatory Limitations: no limitations History of Present Illness HPI Narrative: 41-year-old female presents to the [facility] with complaints of a sore throat for 2 weeks. patient is also complaining of sinus congestion, cough, chest congestion history of asthma and is currently smoker Related Data Home Medications Medication Instructions Recorded Confirmed albuterol sulfate 90 mcg/actuation 2 puff inhalation QID 06/19/19 03/18/22 aerosol inhaler (ProAir HFA) albuterol sulfate 90 mcg/actuation 90 mcg inhalation DIRECTED 08/27/19 03/18/22 aerosol inhaler lisinopril 40 mg tablet 40 mg PO DAILY 08/27/21 03/18/22 cyclobenzaprine 5 mg tablet 1 tablet PO DAILY 11/03/21 03/18/22 montelukast 10 mg tablet 1 tablet PO DAILY 11/03/21 03/18/22 pantoprazole 40 mg tablet,delayed 40 mg PO QAM 03/18/22 03/18/22 release (Protonix) phentermine 30 mg capsule 30 mg PO DAILY 03/18/22 03/18/22 hydrocodone 7.5 mg-acetaminophen tablet 06/13/22 325 mg tablet prednisone 10 mg tablet mg 06/13/22 Allergies Allergy/AdvReac Type Severity Reaction Status Date / Time aspirin Allergy Mild Hives Verified 06/13/22 13:41 Penicillins Allergy Mild Hives Verified 06/13/22 13:41 ibuprofen Allergy Hives Verified 06/13/22 13:41 clindamycin AdvReac Unknown SEVERE Verified 06/13/22 13:41 VOMITING nitrofurantoin AdvReac Unknown Vomiting Verified 06/13/22 13:41 Contrast Media Allergy Mild Difficulty Uncoded 06/13/22 13:41 Breathing Review of Systems Review of Systems: All systems reviewed & are unremarkable except as noted in HPI and below Constitutional: Constitutional: Reports no additional constitutional complaints Eyes: Eyes: Reports no additional eye complaints ENT: Reports as per HPI and Reports sore throat Cardiovascular: Cardiovascular: Reports no additional cardiovascular complaints, Denies chest pain and Denies dyspnea Respiratory: Respiratory: Reports as per HPI, Reports chest congestion, Reports cough, Denies dyspnea and Denies wheezing Gastrointestinal: Gastrointestinal: Reports no additional gastrointestinal complaints, Denies abdominal pain, Denies nausea and Denies vomiting Musculoskeletal: Musculoskeletal: Reports no additional musculoskeletal complaints Integumentary/Breasts: Skin/Breast: Reports system reviewed and no additional complaints, except as docu Neurologic: Reports system reviewed and no additional complaints, except as documented Psychiatric: Psychiatric: Reports no additional psychiatric complaints Allergic/Immunologic: Allergic/Immunologic: Reports no additional allergic/immunologic complaints [facility] Past Medical History Medical History (Updated 06/13/22 @ 14:51 by Julia Cox APRN) Asthma Hx of migraines Hypertension Surgical History Surgical History H/O partial thyroidectomy History of cholecystectomy Family History Family History Father Heart disease Brain cancer Hypertension Diabetes mellitus Grandparent Lung cancer Mother Diabetes mellitus Hypertension Social History Social History Smoking packs per day: 0.5 Smoking cigarettes per day: 10.0 Years smoked: 18 Smoking pack-years: 9.00 Smoking status: Current every day smoker Tobacco type: cigarettes Second hand tobacco smoke exposure: No Alcohol intake: current Living arrangements: with family Gender identity (if verbalized by the patient): Female Comments At the time of my signature, I reviewed and agree with the nursing past medical, surgical, social, and family history.
== END 2022-06-13 15:00 | disposition home or self-care (01) ==
PROVIDERS: Emergency Provider Nurse Practitioner; PCP Family Medicine
DX: J40 Bronchitis, not specified as acute or chronic (principal); I10 Essential (primary) hypertension
CPT/HCPCS: 87081; 87880; 99213; G0463

== ENCOUNTER 2022-08-21 08:32 | Outpatient (CLI) | payer OTHER, SELFPAY ==
--- NOTE | ~2022-08-21 | CT_ITS ---
EXAMINATION: CT sinus wo con DATE: 08/21/2022 08:46 INDICATION: Sinusitis. TECHNIQUE: Computed tomography (CT) of the paranasal sinuses was performed without intravenous contra st. Iterative reconstruction technique was employed. The dose-length product was 277.13 mGy-cm. COMPARISON: Brain MRI 10/26/2018 FINDINGS: The frontal sinuses are clear. There is mild mucosal thickening in the bilateral ethmoid si nuses. The sphenoid sinuses are clear. There is mild mucosal thickening and dependent fluid in the ma xillary sinuses. There is rightward deviation of the nasal septum. There are bilateral Reinier cells. The ostiomeatal units are patent. IMPRESSION: 1. Mucosal thickening in the paranasal sinuses. 2. Rightward deviation of the nasal septum. Reviewed, dictated and finalized at location A.
== END 2022-08-21 08:33 | disposition home or self-care (01) ==
PROVIDERS: PCP Family Medicine; Visit Provider Otolaryngology
DX: J32.9 Chronic sinusitis, unspecified (principal); J34.2 Deviated nasal septum
CPT/HCPCS: 70486

== ENCOUNTER 2022-10-27 12:51 | Outpatient (CLI) | payer OTHER, SELFPAY ==
--- NOTE | 2022-10-27 13:00 | ECG_ITS ---
Measurements Intervals [place] Rate: 81 P: 55 LA: 142 QRS: 71 QRSD: 94 T: 48 QT: 385 QTc: 447 Interpretive Statements SINUS RHYTHM BASELINE ARTIFACT- I, II, III, AVR, AVL, AVF, V4-V6 NORMAL ECG NO PREVIOUS ECG AVAILABLE FOR COMPARISON Electronically Signed On 10-27-2022 13:15:45 CDT by Cristobal Lopez D.O.
== END 2022-10-27 12:52 | disposition home or self-care (01) ==
LOC: ANHSURGERY 12:55
PROVIDERS: PCP Family Medicine; Visit Provider Otolaryngology
DX: I10 Essential (primary) hypertension (principal); Z01.818 Encounter for other preprocedural examination
CPT/HCPCS: 93005

== ENCOUNTER 2022-10-28 01:23 | Day surgery (SDC) | payer OTHER, SELFPAY ==
[2022-10-24 14:16] VITALS: BMI 36.1
--- NOTE | 2022-10-24 14:40 | SUR.PREOP ---
Report to the Outpatient Waiting Room, entrance under the green pavilion located off [facility], at time 1000 on date 10/28/2022. Planned Procedure Time: 1200. Time changes happen often and if your time is changed the preop area will call you the afternoon before. - You and your visitor will be asked to self-screen and do not enter if you have any COVID symptoms. - A mask is optional within the hospital at this time. Patients may have clear liquids (water, carbonated beverages, clear teas, apple juice) until 3 hours prior to surgery with a maximum of 20 ounces- 0900. - No food from midnight until time of surgery - Infants may have breast milk until 4 hours before surgery, infant formula 6 hours prior to surgery. - Children will be allowed to drink immediately following surgery. If applicable, please bring a bottle or sippy cup to assist with drinking. Juice, water, soda, and popsicles are readily available. For infants on formula, please bring formula the day of surgery. Pacifiers are allowed. Take the following medications with a SIP of water the morning of surgery: Prednisone, Albuterol and [place] as needed DO NOT STOP ANY OF YOUR OTHER PRESCRIPTION MEDICATIONS PRIOR TO SURGERY ?EXCEPT THE FOLLOWING Medications to discontinue per physician Vitamin D Date to take last dose 10/19/2022 Please no make-up, nail lao, hairspray, perfume, deodorant, or body powder the day of surgery. No jewelry (including any body piercings) or valuables the day of surgery, leave them at home. Please take a shower or bath the night before, or the morning of, surgery with an antibacterial soap. Wear comfortable, loose fitting clothing. Children are encouraged to wear pajamas. - Jewelry must be removed prior to entering the operating room. Rings and piercings that are not removed may be cut off. - The hospital will not accept responsibility for valuables. - Please leave all valuables, including medications, at home the day of surgery. If you are going home after surgery, a licensed party bus driver must drive you home. - NO public transportation without another adult if you receive anesthesia. - We recommend that an adult stay with you for 24 hours following discharge. - We also recommend that you do not drive, make important decision, drink alcoholic beverages, or take any drugs that were not prescribed by your health care provider for at least 24 hours after your discharge time. For Pediatric surgeries, we recommend two adults accompany the child home. Follow any additional instructions given to you from your surgeon. If you or anyone in your household have experienced Covid symptoms in the past week, please notify your surgeon or the nurse liaison at the phone number below for possible testing. Telephone instructions given to ____patient- Diane and asked if any additional questions and then verbalized understanding. Patient advised to call surgeon office or pre surgery nurse liaison [phone] if any additional questions.
--- NOTE | 2022-10-27 16:39 | PM.IMHP ---
H&P: HPI History of Present Illness Date/Time: 10/27/22 16:39 Chief Complaint: Septal deviation turbinate hypertrophy nasal obstruction nasal congestion chronic sinusitis Narrative: planned procedure Review of Systems Review of Systems: All systems reviewed & are unremarkable except as noted in HPI and below PMFSH Past Medical History Medical History (Updated 10/27/22 @ 16:40 by Mike Brooks MD) Asthma Hx of migraines Hypertension Surgical History Surgical History H/O partial thyroidectomy History of cholecystectomy Family History Family History Father Heart disease Brain cancer Hypertension Diabetes mellitus Grandparent Lung cancer Mother Diabetes mellitus Hypertension Social History Social History Smoking packs per day: 1 Smoking cigarettes per day: 20.0 Years smoked: 20 Smoking pack-years: 20.00 Smoking status: Current every day smoker Tobacco type: cigarettes Second hand tobacco smoke exposure: No Alcohol intake: never Substance use: never Lack of Transportation: No Lack of Food: Never True Current Housing: I Have Housing Concerned About Future Housing: No Difficulty Paying Gas/Electric Bills: No Difficulty Paying for Meds: No Currently Unemployed: No Education: High School Diploma/GED Difficulty w/ Childcare or Family Care: No Living arrangements: with family Gender identity (if verbalized by the patient): Female Spiritual care concerns: No Meds Home Medications and Allergies Home Medications Medication Instructions Recorded Confirmed Type albuterol sulfate 90 mcg/actuation 2 puff inhalation QID PRN 06/19/19 08/13/22 History aerosol inhaler (ProAir HFA) Shortness Of Breath albuterol sulfate 90 mcg/actuation 90 mcg inhalation DIRECTED PRN 08/27/19 10/24/22 History aerosol inhaler Shortness Of Breath Or Wheezing lisinopril 40 mg tablet 40 mg PO DAILY 08/27/21 10/24/22 History montelukast 10 mg tablet 1 tablet PO DAILY 11/03/21 10/24/22 History hydrocodone 7.5 mg-acetaminophen 1 tablet PO PRN PRN Pain 06/13/22 10/24/22 History 325 mg tablet pantoprazole 40 mg tablet,delayed 40 mg PO QHS 07/21/22 10/24/22 History release (Protonix) omeprazole 20 mg capsule,delayed 20 mg PO QAM #30 caps 09/29/22 10/24/22 Rx release cholecalciferol (vitamin D3) 1,250 50,000 unit PO WEEKLY 10/24/22 10/24/22 History mcg (50,000 unit) tablet prednisone 5 mg tablet 10 mg PO DAILY 10/24/22 10/24/22 History Allergies Allergy/AdvReac Type Severity Reaction Status Date / Time aspirin Allergy Mild Hives Verified 10/24/22 14:11 Penicillins Allergy Mild Hives Verified 10/24/22 14:45 ibuprofen Allergy Hives Verified 10/24/22 14:45 clindamycin AdvReac Unknown SEVERE Verified 10/24/22 14:45 VOMITING nitrofurantoin AdvReac Unknown Vomiting Verified 10/24/22 14:45 Contrast Media Allergy Mild Difficulty Uncoded 10/24/22 14:45 Breathing Exam Narrative: chronic sinuses septal deviation turbinate hypertrophy Assessment and Plan Assessment and plan (1) Nasal septal deviation: Code(s): J34.2 - Deviated nasal septum Status: Acute Assessment and Plan: plan OR image guided endoscopic bilateral maxillary antrostomies anterior ethmoidectomies endoscopic assisted septoplasty turbinate reduction outfracture. Risks were discussed including bleeding infection CSF leak brain brain damage change in vision total blindness septal perforation need for further procedures. Resolve symptoms chronic infection need for multiple debridements need for chronic follow-up. Inherent risks of narcotic use. Damage to any structure over the clavicle by myself damage to any structure during induction and remains of anes
[2022-10-28] VITALS (13 sets, daily range): BP systolic 101–172; BP diastolic 71–97; PULSE 81–102; RESP 13–18; TEMP 36.6–36.9; O2SAT 92–99
--- NOTE | 2022-10-28 07:46 | WPDHPUPDATE1 ---
History and Physical Update Update Date/Time: 10/28/22 07:46 History and Physical has been reviewed, including an updated exam of the patient. There are NO changes in the patient's condition. Risks, benefits, and alternatives have been discussed and questions answered. Patient agrees to proceed with procedure.
[2022-10-28] MEDS: LACTATED RINGERS 1,000 ML 30 ML IV CONT ×3 (10:35→15:35)
[2022-10-28] MEDS: ACETAMINOPHEN 500 MG TABLET 1000 MG PO (10:35)
--- NOTE | 2022-10-28 10:56 | WPDANESEPPF ---
Anes - Initial Pre Proc Eval Procedure: Operation Date: 10/28/22 12:00 Proposed Procedures p Image Guided Bilateral Inferior Turbinectomy with Outfracture, Bilateral Maxillary Antrostomy without Tissue Removal, Bilateral Anterior Ethmoidectomy, - Mike Brooks MD s Endoscopic Septoplasty - Mike Brooks MD Date/Time: 10/28/22 10:56 Surgeon: Mike Brooks MD Pre Op Diagnosis: Chr Sinusitis Patient Data Age: 42 Gender: F Height: 1.7 m Weight: 110.9 kg Allergies Allergy/AdvReac Type Severity Reaction Status Date / Time Iodinated Contrast Media Allergy Severe Difficulty Verified 10/28/22 10:34 Breathing iodine Allergy Severe Difficulty Verified 10/28/22 10:34 Breathing aspirin Allergy Mild Hives Verified 10/28/22 10:34 Penicillins Allergy Mild Hives Verified 10/28/22 10:34 ibuprofen Allergy Hives Verified 10/28/22 10:34 clindamycin AdvReac Unknown SEVERE Verified 10/28/22 10:34 VOMITING nitrofurantoin AdvReac Unknown Vomiting Verified 10/28/22 10:34 Home Medications Medication Instructions Recorded Confirmed Type albuterol sulfate 90 mcg/actuation 2 puff inhalation QID PRN 06/19/19 10/28/22 History aerosol inhaler (ProAir HFA) Shortness Of Breath albuterol sulfate 90 mcg/actuation 90 mcg inhalation DIRECTED PRN 08/27/19 10/28/22 History aerosol inhaler Shortness Of Breath Or Wheezing lisinopril 40 mg tablet 40 mg PO DAILY 08/27/21 10/28/22 History montelukast 10 mg tablet 1 tablet PO DAILY 11/03/21 10/28/22 History hydrocodone 7.5 mg-acetaminophen 1 tablet PO PRN PRN Pain 06/13/22 10/28/22 History 325 mg tablet pantoprazole 40 mg tablet,delayed 40 mg PO QHS 07/21/22 10/28/22 History release (Protonix) omeprazole 20 mg capsule,delayed 20 mg PO QAM #30 caps 09/29/22 10/28/22 Rx release cholecalciferol (vitamin D3) 1,250 50,000 unit PO WEEKLY 10/24/22 10/28/22 History mcg (50,000 unit) tablet prednisone 5 mg tablet 10 mg PO DAILY 10/24/22 10/28/22 History Patient hx anesthesia problems: none Family hx anesthesia problems: none Results Review: All pre-operative results and documents have been reviewed as part of the pre-operative evaluation. [facility] Past Medical History Medical History (Updated 10/28/22 @ 10:56 by Marcos Martinez MD) Asthma Hx of migraines Hypertension Obesity Surgical History Surgical History H/O partial thyroidectomy History of cholecystectomy Family History Family History Father Heart disease Brain cancer Hypertension Diabetes mellitus Grandparent Lung cancer Mother Diabetes mellitus Hypertension Social History Social History Smoking packs per day: 1 Smoking cigarettes per day: 20.0 Years smoked: 20 Smoking pack-years: 20.00 Smoking status: Current every day smoker Tobacco type: cigarettes Second hand tobacco smoke exposure: No Alcohol intake: never Substance use: never Lack of Transportation: No Lack of Food: Never True Current Housing: I Have Housing Concerned About Future Housing: No Difficulty Paying Gas/Electric Bills: No Difficulty Paying for Meds: No Currently Unemployed: No Education: High School Diploma/GED Difficulty w/ Childcare or Family Care: No Living arrangements: with family Gender identity (if verbalized by the patient): Female Spiritual care concerns: No Anes - Eval Final PreProcedure Day of Procedure 10/28/22 10:56 Patient weight: obese Heart: regular rate and rhythm Lungs: clear to auscultation Airway: Mallampati scale class II Neurological: alert and oriented Last oral intake: >/= 8 hours ASA classification: III Emergent: no Anesthetic plan: proceed Anesthesia type and monitoring: general ETT and standard monitoring Results Review: All pre-operative resul
[2022-10-28] MEDS: ceFAZolin 2 GM/D5W 50 ML 2 GM/50 ML BAG IVPB (11:25)
[2022-10-28] MEDS: OXYMETAZOLINE HCL 0.05% NAS 15 ML BTL (*BKC) 1 SPRAY NASAL (12:03)
[2022-10-28] MEDS: LIDO 1%/EPINEPHRINE 1:100,000 20 ML VIAL 5 ML INFILTRATE (12:03)
[2022-10-28] MEDS: MUPIROCIN 2% OINT 22 GM TUBE 1 APPLIC EACH NARE (13:01)
--- NOTE | 2022-10-28 13:50 | P.OP_ITS ---
Procedure Note - Detailed Date of Procedure 10/28/22 Pre-op Diagnosis Chr Sinusitis Deviation turbinate hypertrophy Post-op Diagnosis Same Procedure Performed endoscopic assisted septoplasty inferior turbinate reduction with outfracture bilateral endoscopic image guided maxillary antrostomy the anterior ethmoidectomies Surgeon Mike Brooks MD Anesthesia General Indications see above Findings diseased mucosa in all the aforementioned sinuses right septal deviation straight afterwards hypertrophied turbinates well reduced Description of Procedure patient identified consent verified in preop. Patient brought to the operating room. Time-out performed. General anesthesia induced endotracheal tube secured. Patient prepped reposition procedure confirmed. Second time-out performed. Image guidance confirmed initiated. Afrin-soaked pledgets placed for 5 minutes then removed. 13 cc 1% lidocaine 1 100,000 parts epinephrine injected in the bilateral inferior turbinates and bilateral nasal septum. Kill opal incision made left-sided left nasal septal flap elevated osteotome utilized to outline the removed septum and crossover. Right nasal septal flap elevated. Deviated septum removed combination Osmin [place] forceps Mena forceps osteotome. Akhil incision closed interrupted 5 0 fast gut sutures. Turbinates reduced in submucosal plane using microdebrider turbinate blade. They were then outfractured. [place] tips cauterized heads cauterized lightly. Maxillary antrostomies performed under image guidance with backbiter straight through cut microdebrider great care was taken not to injure the orbit or nasolacrimal duct. Anterior ethmoidectomy performed with [place] microdebrider straight through cut. No damage to septum no damage to orbit. This was a bilateral procedure for the sinus surgery. The wound was then then the nose nasal passages and sinuses were copiously irrigated with sterile normal saline about 500 cc. Any bleeding was controlled with Afrin-soaked pledgets. NasoPore then placed bilaterally. Bilateral nasal passages suction. Total blood loss about 50-75 cc. Cabrera splints placed bilaterally sutured anteriorly using a 3-0 mattressed nylon suture. I performed all dictated portions of the procedure. Care the patient given Anesthesiology. No complications. Patient taken to PACU. Estimated Blood Loss -75.0 Drains No Packing Yes ( Nasopore) Pathology None sent Complications No immediate complications Condition Stable Disposition PACU [facility] Billing Surgery - Charge Forward: Surgery Billing
--- NOTE | 2022-10-28 14:11 | SUR.PHASEI ---
1335: patient arrives to PACU. Patient is combative. Patient punching/kicking/slapping at staff. Mamie RN, Alyssa GILL, Shruti RN are all at bedside. Unable to console patient with therapeutic communication. Alyssa GILL giving medication. 1340: : Patient becomes combative again. Patient punching/kicking/slapping at staff. Mamie WALKER, Alyssa GILL, Shruti WALKER, Rhonda JIN are all at bedside. Unable to console patient with therapeutic communication. Alyssa GILL giving medication. Dr. Martinez at bedside. 1345: patient is resting comfortably and quietly with eyes closed.
[2022-10-28] MEDS: fentaNYL CITRATE INJ (*CRX) 100 MCG/2 ML VIAL 25 MCG IV PUSH ×8 (14:40→15:24)
[2022-10-28] MEDS: oxyCODONE HCL (*CRX) 5 MG TAB IR PO (15:51)
== END 2022-10-28 16:40 | disposition home or self-care (01) ==
PROVIDERS: PCP Family Medicine; Visit Provider Otolaryngology
PROC: (CPT 31256; principal; 2022-10-28 12:00)
PROC: (CPT 30520; 2022-10-28 12:00)
DX: J32.9 Chronic sinusitis, unspecified (principal); J34.2 Deviated nasal septum; J34.3 Hypertrophy of nasal turbinates; I10 Essential (primary) hypertension; J45.909 Unspecified asthma, uncomplicated; Z79.51 Long term (current) use of inhaled steroids; F17.210 Nicotine dependence, cigarettes, uncomplicated; E66.9 Obesity, unspecified; Z68.38 Body mass index [BMI] 38.0-38.9, adult
CPT/HCPCS: 31256; 31254; 61782; 30520; 30140; A9270; J0330; J0690; J1100; J2250; J2405; J2704; J3010; J7120

== ENCOUNTER 2022-12-25 15:33 | Outpatient (CLI) | payer OTHER, SELFPAY ==
--- NOTE | ~2022-12-25 | CT_ITS ---
EXAMINATION: CT sinus wo con DATE: 12/25/2022 15:47 INDICATION: Headache TECHNIQUE: Computed tomography (CT) of the paranasal sinuses was performed without contrast. Iterativ e reconstruction technique was employed. Exam dose: 346.06 mGy-cm total exam DLP. COMPARISON: 08/2022 CT sinuses FINDINGS: There are bilateral nasal antral windows with resection of the uncinate process on the left . There is soft tissue opacification of the right maxillary ostium and right infundibulum. Status post bilateral partial ethmoidectomies. There is focal moderate soft tissue thickening of the right ethmoid air cells. The paranasal sinuses are otherwise well aerated. The mastoid air cells are normally developed and aerated IMPRESSION: Interval postsurgical changes since 08/2022 including bilateral nasal antral windows, re section of the left uncinate process, partial ethmoidectomies Moderate focal right ethmoid soft tissue thickening; the paranasal sinuses are otherwise clear Reviewed, dictated and finalized at [facility]. Reviewed, dictated and finalized at [facility]. IMPRESSION: Interval postsurgical changes since 08/2022 including bilateral na renae antral windows, resection of the left uncinate process, partial ethmoidecto mies Moderate focal right ethmoid soft tissue thickening; the paranasal sinuses are otherwise clear
== END 2022-12-25 15:34 | disposition home or self-care (01) ==
PROVIDERS: PCP Family Medicine; Visit Provider Otolaryngology
DX: J32.9 Chronic sinusitis, unspecified (principal); R51.9 Headache, unspecified
CPT/HCPCS: 70486

== ENCOUNTER 2023-04-04 17:13 | Emergency (ER) | payer OTHER, SELFPAY ==
[2023-04-04 17:33] VITALS: BP 141/88; PULSE 91; RESP 16; TEMP 37.1; O2SAT 98
--- NOTE | 2023-04-04 18:23 | ED.URI ---
HPI - URI/Sore Throat General Chief Complaint: Upper Respiratory Infection Stated Complaint: sinus issue,cough,chest issue Time Seen by Provider: 04/04/23 18:23 Source: patient and RN notes reviewed Mode of arrival: ambulatory Limitations: no limitations History of Present Illness HPI Narrative: 42-year-old female presents with concern for sinus congestion, chest congestion, cough since the beginning of February. She denies taking any bypy-[id number] medications. She reports that at some point since the symptoms started she was on a Z-Josh without much relief. MD elicited complaint: cough and sore throat Related Data Home Medications Medication Instructions Recorded Confirmed budesonide-formoterol HFA 160 inhalation 04/04/23 mcg-4.5 mcg/actuation aerosol inhaler (Symbicort) buprenorphine 5 mcg/hour weekly 04/04/23 transdermal patch cetirizine 10 mg tablet 10 mg PO DIRECTED 04/04/23 04/04/23 fenofibrate 160 mg tablet 160 mg PO DIRECTED 04/04/23 04/04/23 lisinopril 40 mg tablet 40 mg PO DIRECTED 04/04/23 04/04/23 montelukast 10 mg tablet 10 mg PO DIRECTED 04/04/23 04/04/23 omeprazole 40 mg capsule,delayed 40 mg PO DIRECTED 04/04/23 04/04/23 release phentermine 15 mg capsule 15 mg PO DIRECTED 04/04/23 04/04/23 Allergies Allergy/AdvReac Type Severity Reaction Status Date / Time Iodinated Contrast Media Allergy Severe Difficulty Verified 04/04/23 17:27 Breathing iodine Allergy Severe Difficulty Verified 04/04/23 17:27 Breathing aspirin Allergy Mild Hives Verified 04/04/23 17:27 Penicillins Allergy Mild Hives Verified 04/04/23 17:27 ibuprofen Allergy Hives Verified 04/04/23 17:27 clindamycin AdvReac Unknown SEVERE Verified 04/04/23 17:27 VOMITING nitrofurantoin AdvReac Unknown Vomiting Verified 04/04/23 17:27 Review of Systems Review of Systems: CONSTITUTIONAL: Reports malaise. Denies chills, sweats, or fever. EYES: Denies visual changes, redness, or discharge. ENT: Reports rhinorrhea, congestion, sinus pain, otalgia and sore throat. CARDIOVASCULAR: Denies chest pain, palpitations, or edema. RESPIRATORY: Reports cough. Denies dyspnea. GASTROINTESTINAL: Denies abdominal pain, nausea, vomiting, diarrhea SKIN: Denies rash or itching. MUSCULOSKELETAL: Denies myalgia. NEUROLOGIC: Denies headache. All systems reviewed & are unremarkable except as noted in HPI and below PMFSH Past Medical History Medical History Asthma Hx of migraines Hypertension Obesity Surgical History Surgical History H/O partial thyroidectomy History of cholecystectomy Family History Family History Father Heart disease Brain cancer Hypertension Diabetes mellitus Grandparent Lung cancer Mother Diabetes mellitus Hypertension Social History Social History Smoking packs per day: 1 Smoking cigarettes per day: 20.0 Years smoked: 20 Smoking pack-years: 20.00 Smoking status: Current every day smoker Tobacco type: cigarettes Second hand tobacco smoke exposure: No Alcohol intake: never Substance use: never Lack of Transportation: No Lack of Food: Never True Current Housing: I Have Housing Concerned About Future Housing: No Difficulty Paying Gas/Electric Bills: No Difficulty Paying for Meds: No Currently Unemployed: No Education: High School Diploma/GED Difficulty w/ Childcare or Family Care: No Living arrangements: with family Gender identity (if verbalized by the patient): Female Spiritual care concerns: No Comments At time of signature, agree with nursing past medical, surgical, social and family history. There is no relevant family history pertinent to the presenting complaint
== END 2023-04-04 18:36 | disposition home or self-care (01) ==
PROVIDERS: Emergency Provider Nurse Practitioner; PCP Family Medicine
DX: J32.9 Chronic sinusitis, unspecified (principal); J45.909 Unspecified asthma, uncomplicated; I10 Essential (primary) hypertension; E66.9 Obesity, unspecified; Z68.37 Body mass index [BMI] 37.0-37.9, adult; Z90.89 Acquired absence of other organs; F17.210 Nicotine dependence, cigarettes, uncomplicated
CPT/HCPCS: 99213; G0463

== ENCOUNTER 2023-05-18 11:38 | Outpatient (CLI) | payer OTHER, SELFPAY ==
[2023-05-18 12:29] LABS: Basophils Percent Auto 0.5 % (0.2-1.2); Eosinophils Absolute Auto 0.2 K/mm3 (0-0.3); Eosinophils Percent Auto 1.7 % (0-4.4); Hematocrit 40.5 % (37.0-47.0); Hemoglobin 13.2 g/dL (12.0-15.0); Immature Granulocyte Absolute 0.04 K/mm3 (0.00-0.031); Immature Granulocyte Percent A 0.5 % (0-0.5); Lymphocytes Absolute Auto 2.32 K/mm3 (0.9-3.2); Lymphocytes Percent Auto 26.2 % (18.3-44.2); Mean Corpuscular HGB Conc 32.6 g/dl (32-36); Mean Corpuscular Hemoglobin 29.5 pg (26-34); Mean Corpuscular Volume 90.6 fl (80-100); Mean Platelet Volume 10.7 fl (7.4-10.4); Monocytes Absolute Auto 1.2 K/mm3 (0.1-0.6); Neutrophils Absolute Auto 5.1 K/mm3 (1.3-6.7); Neutrophils Percent Auto 57.1 % (45.5-73.1); Platelet Count Result 323 k/mm3 (150-375); Red Blood Count 4.47 M/mm3 (4.2-5.4); Red Cell Distribution Width 13.2 % (11.5-14.5); White Blood Count 8.8 K/mm3 (4.5-10.0)
== END 2023-05-18 11:39 | disposition home or self-care (01) ==
LOC: ANHLAB 11:40
PROVIDERS: PCP Family Medicine; Visit Provider Obstetrics & Gynecology
DX: N92.6 Irregular menstruation, unspecified (principal)
CPT/HCPCS: 36415; 85025

== ENCOUNTER 2023-06-09 11:36 | Emergency (ER) | payer OTHER, SELFPAY ==
[2023-06-09 11:46] VITALS: BP 149/78; PULSE 92; RESP 16; TEMP 36.6; O2SAT 99
--- NOTE | 2023-06-09 12:11 | ED.URI ---
HPI - URI/Sore Throat General Chief Complaint: Upper Respiratory Infection Stated Complaint: cough Time Seen by Provider: 06/09/23 12:10 Source: patient Mode of arrival: ambulatory Limitations: no limitations History of Present Illness HPI Narrative: 42-year-old female presents [facility] with complaint productive for 1. Patient endorsing headache for 5 days. Patient endorses history of chronic bronchitis and states these symptoms feel similar. Patient endorses that sputum was initially white and has recently become 10. Patient reports that she is still a daily smoker. Patient denies fever, shortness of breath, chest pain. patient able to tolerate fluids by mouth. Patient has attempted to treat at home with [id number] medications without relief. Pertinent past history: sinusitis Related Data Home Medications Medication Instructions Recorded Confirmed budesonide-formoterol HFA 160 See Rx Instructions .Route .COMPLEX 04/04/23 06/09/23 mcg-4.5 mcg/actuation aerosol inhaler (Symbicort) cetirizine 10 mg tablet 10 mg PO DIRECTED 04/04/23 06/09/23 fenofibrate 160 mg tablet 160 mg PO DIRECTED 04/04/23 06/09/23 lisinopril 40 mg tablet 40 mg PO DIRECTED 04/04/23 06/09/23 montelukast 10 mg tablet 10 mg PO DIRECTED 04/04/23 06/09/23 omeprazole 40 mg capsule,delayed 40 mg PO DIRECTED 04/04/23 06/09/23 release phentermine 15 mg capsule 15 mg PO DIRECTED 04/04/23 06/09/23 Allergies Allergy/AdvReac Type Severity Reaction Status Date / Time Iodinated Contrast Media Allergy Severe Difficulty Verified 06/09/23 11:53 Breathing iodine Allergy Severe Difficulty Verified 06/09/23 11:53 Breathing aspirin Allergy Mild Hives Verified 06/09/23 11:53 Penicillins Allergy Mild Hives Verified 06/09/23 11:53 ibuprofen Allergy Hives Verified 06/09/23 11:53 clindamycin AdvReac Unknown SEVERE Verified 06/09/23 11:53 VOMITING nitrofurantoin AdvReac Unknown Vomiting Verified 06/09/23 11:53 Review of Systems Constitutional: Constitutional: Reports as per HPI, Denies body ache(s), Denies chills, Reports difficulty sleeping, Denies fever(s) and Reports headache(s) Eyes: Eyes: Reports as per HPI and Reports no additional eye complaints ENT: Denies dizziness and Reports headache(s) Cardiovascular: Cardiovascular: Reports as per HPI, Reports no additional cardiovascular complaints, Denies chest pain and Denies syncope Respiratory: Respiratory: Reports change in phlegm color, Reports cough and Denies pain on inspiration Musculoskeletal: Musculoskeletal: Reports no additional musculoskeletal complaints and Reports as per HPI Neurologic: Reports system reviewed and no additional complaints, except as documented and Reports as per HPI [facility] Past Medical History Medical History (Updated 06/09/23 @ 12:32 by Michelle Gonzalez APRN) Asthma GERD (gastroesophageal reflux disease) Herniated cervical disc C4 and C5 Hx of migraines Hypertension Obesity Screening mammogram, encounter for Vitamin D deficiency Surgical History Surgical History (Updated 05/18/23 @ 10:41 by TODD Hummel) H/O partial thyroidectomy (~2003) History of cholecystectomy (~2017) S/P correction of deviated nasal septum (~10/18/22) Family History Family History (Updated 05/14/23 @ 12:22 by TODD Hummel) Father Heart disease Brain cancer Hypertension Diabetes mellitus Lung cancer Grandparent Lung cancer Breast cancer, Onset Age: 50 maternal grandmother Mother Diabetes mellitus Hypertension Sibling Breast cancer, Onset Age: 49 sister Hypertension Diabetes mellitus Social History Social History (Updated 05/18/23 @ 10:42 by TODD Hummel) Smoking packs per day: 1 Smoking cigarettes per day: 20.0 Years smoked: 20 Smoking pack-years: 20.00 Smoking status: Current every day smoker Tobacco type: cigarettes
== END 2023-06-09 12:50 | disposition home or self-care (01) ==
PROVIDERS: Emergency Provider Nurse Practitioner Family; PCP Family Medicine
DX: J40 Bronchitis, not specified as acute or chronic (principal); F17.210 Nicotine dependence, cigarettes, uncomplicated; J45.909 Unspecified asthma, uncomplicated; K21.9 Gastro-esophageal reflux disease without esophagitis; I10 Essential (primary) hypertension; E66.9 Obesity, unspecified; Z68.39 Body mass index [BMI] 39.0-39.9, adult; Z90.89 Acquired absence of other organs
CPT/HCPCS: 99213; G0463

== ENCOUNTER 2023-07-02 01:01 | Day surgery (SDC) | payer OTHER, SELFPAY ==
[2023-06-26 14:40] VITALS: BMI 39.3
--- NOTE | 2023-06-26 14:47 | PC.NURSE ---
Report to the Outpatient Waiting Room, entrance under the green pavilion located off [facility], at time _0615_ on date 07/02/23__. Planned Procedure Time: _0815__. Time changes happen often and if your time is changed the preop area will call you the afternoon before. - You and your visitor will be asked to self-screen and do not enter if you have any COVID symptoms. - A mask is optional within the hospital at this time. Patients may have clear liquids (water, carbonated beverages, clear teas, apple juice) until 3 hours prior to surgery with a maximum of 20 ounces. - No food from midnight until time of surgery - Infants may have breast milk until 4 hours before surgery, infant formula 6 hours prior to surgery. - Children will be allowed to drink immediately following surgery. If applicable, please bring a bottle or sippy cup to assist with drinking. Juice, water, soda, and popsicles are readily available. For infants on formula, please bring formula the day of surgery. Pacifiers are allowed. Take the following medications with a SIP of water the morning of surgery: SYMBICORT DO NOT STOP ANY OF YOUR OTHER PRESCRIPTION MEDICATIONS PRIOR TO SURGERY ?EXCEPT THE FOLLOWING Medications to discontinue per physician VITAMIN D Date to take last dose__06/26/23 Please no make-up, nail vietnamese, hairspray, perfume, deodorant, or body powder the day of surgery. No jewelry (including any body piercings) or valuables the day of surgery, leave them at home. Please take a shower or bath the night before, or the morning of, surgery with an antibacterial soap. Wear comfortable, loose fitting clothing. Children are encouraged to wear pajamas. - Jewelry must be removed prior to entering the operating room. Rings and piercings that are not removed may be cut off. - The hospital will not accept responsibility for valuables. - Please leave all valuables, including medications, at home the day of surgery. If you are going home after surgery, a licensed front loader residential driver must drive you home. - NO public transportation without another adult if you receive anesthesia. - We recommend that an adult stay with you for 24 hours following discharge. - We also recommend that you do not drive, make important decision, drink alcoholic beverages, or take any drugs that were not prescribed by your health care provider for at least 24 hours after your discharge time. For Pediatric surgeries, we recommend two adults accompany the child home. Follow any additional instructions given to you from your surgeon. If you or anyone in your household have experienced Covid symptoms in the past week, please notify your surgeon or the nurse liaison at the phone number below for possible testing. Telephone instructions given to CHARLEEN__and asked if any additional questions and then verbalized understanding. Patient advised to call surgeon office or pre surgery nurse liaison [phone] if any additional questions.
--- NOTE | 2023-07-01 12:25 | WPDANESEPPF ---
Anes - Initial Pre Proc Eval Procedure: Operation Date: 07/02/23 09:15 Proposed Procedures p Hysteroscopy Dilation and Curettage, Excision Left Vulvar Lesion - Curtis Mccoy MD Date/Time: 07/01/23 12:25 Surgeon: Curtis Mccoy MD Pre Op Diagnosis: Menorrhagia, Left Vulvar Lesion Patient Data Age: 42 Gender: F Height: 1.7 m Weight: 114 kg Allergies Allergy/AdvReac Type Severity Reaction Status Date / Time Iodinated Contrast Media Allergy Severe Difficulty Verified 07/02/23 08:03 Breathing iodine Allergy Severe Difficulty Verified 07/02/23 08:03 Breathing aspirin Allergy Mild Hives Verified 07/02/23 08:03 Penicillins Allergy Mild Hives Verified 07/02/23 08:03 ibuprofen Allergy Hives Verified 07/02/23 08:03 clindamycin AdvReac Unknown SEVERE Verified 07/02/23 08:03 VOMITING nitrofurantoin AdvReac Unknown Vomiting Verified 07/02/23 08:03 Home Medications Medication Instructions Recorded Confirmed Type budesonide-formoterol HFA 160 See Rx Instructions .Route .COMPLEX 04/04/23 06/26/23 History mcg-4.5 mcg/actuation aerosol inhaler (Symbicort) lisinopril 40 mg tablet 40 mg PO DIRECTED 04/04/23 06/26/23 History montelukast 10 mg tablet 10 mg PO DIRECTED 04/04/23 06/26/23 History omeprazole 40 mg capsule,delayed 40 mg PO DIRECTED 04/04/23 06/26/23 History release ergocalciferol (vitamin D2) 25,000 50,000 unit PO WEEKLY 06/26/23 07/02/23 History unit capsule Patient hx anesthesia problems: other (wakes up aggressive) Family hx anesthesia problems: none Results Review: All pre-operative results and documents have been reviewed as part of the pre-operative evaluation. [facility] Past Medical History Medical History Asthma Chronic, continuous use of opioids GERD (gastroesophageal reflux disease) Herniated cervical disc C4 and C5 Hx of migraines Hypertension Obesity Screening mammogram, encounter for Vitamin D deficiency Surgical History Surgical History H/O partial thyroidectomy (~2003) History of cholecystectomy (~2017) S/P correction of deviated nasal septum (~10/18/22) Family History Family History Father Heart disease Brain cancer Hypertension Diabetes mellitus Lung cancer Grandparent Lung cancer Breast cancer, Onset Age: 50 maternal grandmother Mother Diabetes mellitus Hypertension Sibling Breast cancer, Onset Age: 49 sister Hypertension Diabetes mellitus Social History Social History Smoking packs per day: 0.5 Smoking cigarettes per day: 10.0 Years smoked: 22 Smoking pack-years: 11.00 Smoking status: Current every day smoker Tobacco type: cigarettes Second hand tobacco smoke exposure: Yes Alcohol intake: former Alcohol use details: 2 DRINKS IN HER LIFE Substance use: never Substance use type: does not use Do You Feel Safe in your Home?: Yes Lack of Transportation: No Lack of Food: Never True Current Housing: I Have Housing Concerned About Future Housing: No Difficulty Paying Gas/Electric Bills: No Difficulty Paying for Meds: No Currently Unemployed: No Education: High School Diploma/GED Difficulty w/ Childcare or Family Care: No Living arrangements: with family Additional living arrangements comments: Occupation/Education: occupation 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
--- NOTE | 2023-07-01 16:24 | PM.IMHP ---
H&P: HPI History of Present Illness Date/Time: 07/01/23 16:24 42-year-old female presents for evaluation regarding heavy menstrual cycles with significant my cramping and discomfort. Not currently using any type of contraception and does not desire as she is interested in childbearing. She did have an ultrasound performed which showed enlarged uterus as well as thickened endometrium. Presents today for hysteroscopic exam and tissue sampling regarding the thickened endometrium irregular bleeding. Also notes left vulvar lesions that she has had for years do not drain or grow and by exam are consistent with sebaceous cyst. Chief Complaint: Menorrhagia with endometrial thickening on ultrasound Review of Systems Review of Systems: All systems reviewed & are unremarkable except as noted in HPI and below PMFSH Past Medical History Medical History Asthma Chronic, continuous use of opioids GERD (gastroesophageal reflux disease) Herniated cervical disc C4 and C5 Hx of migraines Hypertension Obesity Screening mammogram, encounter for Vitamin D deficiency Surgical History Surgical History H/O partial thyroidectomy (~2003) History of cholecystectomy (~2017) S/P correction of deviated nasal septum (~10/18/22) Family History Family History Father Heart disease Brain cancer Hypertension Diabetes mellitus Lung cancer Grandparent Lung cancer Breast cancer, Onset Age: 50 maternal grandmother Mother Diabetes mellitus Hypertension Sibling Breast cancer, Onset Age: 49 sister Hypertension Diabetes mellitus Social History Social History Smoking packs per day: 0.5 Smoking cigarettes per day: 10.0 Years smoked: 22 Smoking pack-years: 11.00 Smoking status: Current every day smoker Tobacco type: cigarettes Second hand tobacco smoke exposure: Yes Alcohol intake: former Alcohol use details: 2 DRINKS IN HER LIFE Substance use: never Substance use type: does not use Do You Feel Safe in your Home?: Yes Lack of Transportation: No Lack of Food: Never True Current Housing: I Have Housing Concerned About Future Housing: No Difficulty Paying Gas/Electric Bills: No Difficulty Paying for Meds: No Currently Unemployed: No Education: High School Diploma/GED Difficulty w/ Childcare or Family Care: No Living arrangements: with family Additional living arrangements comments: Occupation/Education: occupation 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 Gender identity (if verbalized by the patient): Female Sexual Orientation (if Verbalized by the Patient): Straight or Heterosexual Spiritual care concerns: No Meds Home Medications and Allergies Home Medications Medication Instructions Recorded Confirmed Type budesonide-formoterol HFA 160 See Rx Instructions .Route .COMPLEX 04/04/23 06/26/23 History mcg-4.5 mcg/actuation aerosol inhaler (Symbicort) lisinopril 40 mg tablet 40 mg PO DIRECTED 04/04/23 06/26/23 History montelukast 10 mg tablet 10 mg PO DIRECTED 04/04/23 06/26/23 History omeprazole 40 mg capsule,delayed 40 mg PO DIRECTED 04/04/23 06/26/23 History release ergocalciferol (vitamin D2) 25,000 50,000 unit PO WEEKLY 06/26/23 06/26/23 History unit capsule Allergies Allergy/AdvReac Type Severity Reaction Status Date / Time Iodinated Contrast Media Allergy Severe Difficulty Verified 06/26/23 14:40 Breathing iodine Allergy Severe Difficulty Verified 06/26/23 14:40 Breathing aspirin Allergy Mild Hives Verified 06/26/23 14:40 Penicillins Allergy Mild Hives Verified 06/26/23 14:40 ibuprofen Allergy Hives Verified 06/26/23 14:40 clindamyci
[2023-07-02 07:10] VITALS: BP 150/91; PULSE 84; RESP 16; TEMP 36.9; O2SAT 98; BMI 40.1
--- NOTE | 2023-07-02 07:21 | WPDHPUPDATE1 ---
History and Physical Update Update Date/Time: 07/02/23 07:21 History and Physical has been reviewed, including an updated exam of the patient. There are NO changes in the patient's condition. Risks, benefits, and alternatives have been discussed and questions answered. Patient agrees to proceed with procedure.
[2023-07-02] MEDS: LACTATED RINGERS 1,000 ML 30 ML IV CONT (07:50)
[2023-07-02] MEDS: ACETAMINOPHEN 500 MG TABLET 1000 MG PO (07:59)
[2023-07-02] MEDS: LIDOCAINE HCL 1% LOCAL INJ 10 ML VIAL 4 ML INFILTRATE (09:06)
[2023-07-02] MEDS: SILVER NITRATE (*SP) STICK 1 EACH TOPICAL (09:16)
--- NOTE | 2023-07-02 09:22 | W.PM.PROC2 ---
Procedure Note - Detailed Date of Procedure 07/02/23 Pre-op Diagnosis Menorrhagia, Left Vulvar Lesion Post-op Diagnosis Same Procedure Performed 1. Hysteroscopy with uterine curettings 2. Incision and drainage of (4) left vulvar lesions Surgeon Curtis Mccoy MD Anesthesia MAC Findings 1. thickened endometrium on hscope exam 2. L vulvar sebaceous cysts Description of Procedure Patient prepped draped usual manner for this procedure. Cervix was dilated to allow the hysteroscope to be placed which did reveal thickened tissue was noted above. No polyps or fibroids were noted. Curettings were obtained with good sampling and minimal bleeding. Attention was then placed to left vulva and the sebaceous cysts were incised and drained and cyst akbar were removed as well. Band-Aid was placed along with pressure and there was no significant bleeding in this area. Patient was then sent to recovery room in stable condition. Estimated Blood Loss 10 Drains No Packing No Pathology Yes Complications No immediate complications Condition Stable Disposition PACU [facility] Billing Surgery - Charge Forward: Surgery Billing
[2023-07-02 09:27] VITALS: BP 146/96; PULSE 86; RESP 14; O2SAT 99
[2023-07-02] MEDS: oxyCODONE HCL (*CRX) 5 MG TAB IR PO (09:42)
[2023-07-02 09:57] VITALS: BP 160/90; PULSE 83; RESP 16
== END 2023-07-02 10:13 | disposition home or self-care (01) ==
PROVIDERS: PCP Family Medicine; Visit Provider Obstetrics & Gynecology
PROC: 0U5B8ZZ Destruction of Endometrium, Via Natural or Artificial Opening Endoscopic (ICD-10-PCS; CPT 58563; principal; 2023-07-02 09:15)
DX: N92.0 Excessive and frequent menstruation with regular cycle (principal); N90.7 Vulvar cyst; J45.909 Unspecified asthma, uncomplicated; K21.9 Gastro-esophageal reflux disease without esophagitis; I10 Essential (primary) hypertension; E55.9 Vitamin D deficiency, unspecified; F17.210 Nicotine dependence, cigarettes, uncomplicated; E66.9 Obesity, unspecified; Z68.41 Body mass index [BMI] 40.0-44.9, adult
CPT/HCPCS: 58558; 11421; 88305; A9270; J2704; J3010; J7120

== ENCOUNTER 2023-08-05 14:01 | Emergency (ER) | payer OTHER, SELFPAY ==
--- NOTE | ~2023-08-05 | CT_ITS ---
EXAMINATION: CT abdomen pelvis wo con DATE: 08/05/2023 16:09 INDICATION: Right upper quadrant abdominal pain. TECHNIQUE: Computed tomography (CT) of the abdomen and pelvis was performed without intravenous contr ast. Automated exposure control and iterative reconstruction technique were employed. The dose-length product was 1325.09 mGy-cm. COMPARISON: None. FINDINGS: The visualized portions of the lung bases are clear without pneumonia or pleural effusion. The heart size is normal. No pericardial effusion. There is a small sliding hiatal hernia. The liver, gallbladder, pancreas, and adrenal glands are normal. There are changes of cholecystectomy. The kidn eys are normal. There is no urolithiasis. There are no dilated loops of bowel. The appendix is normal . There are no pathologically enlarged lymph nodes. There is no free intraperitoneal fluid. There is mild thoracic and lumbar spondylosis. IMPRESSION: 1. Small sliding hiatal hernia. Reviewed, dictated and finalized at location E.
[2023-08-05 14:08] VITALS: BP 169/100; PULSE 97; RESP 15; TEMP 36.6; O2SAT 99
--- NOTE | 2023-08-05 14:23 | ED.ABDPAIN ---
HPI - Abdominal Pain General Chief Complaint: Abdominal Pain <Jonny Shah APRN - Last Filed: 08/05/23 14:26> Stated Complaint: RUQ pain <Jonny Shah APRN - Last Filed: 08/05/23 14:26> Time Seen by Provider: 08/05/23 14:24 <Jonny Shah APRN - Last Filed: 08/05/23 14:26> Focused HPI: Heather is a 42-year-old female patient presenting to the emergency room today with complaints of right upper quadrant abdominal pain and midsternal chest discomfort. She reports that it is a burning sensation in over the midsternal chest. No shortness of breath. History of GERD. History of cholecystectomy. States the pain started on Thursday when she was laying in the bathtub and raised her right leg to shave her legs. States she felt something twist in her right upper quadrant when she raised her leg. Rates her pain 5/10 currently. Last bowel movement was 1 hour ago. States pain comes and goes in waves and can not achy, burning, and stabbing. General: Well-developed, morbidly obese, in no apparent distress. Head: Normocephalic, atraumatic. Cardio: Regular rate and rhythm, s1 and s2 normal, no murmur appreciated. Resp: Clear to auscultation bilaterally, no rhonchi, rales, wheezing or rubs. Abdomen: Soft, pliable, bowel sounds present in all quadrants, non-tender to palpation, no organomegly, no CVAT tenderness. Patient screened in triage and initial orders placed. Additional care and disposition to be based upon diagnostic testing and treatment. <Jonny Shah APRN - Last Filed: 08/05/23 14:26> Source: patient <Jonny Shah APRN - Last Filed: 08/05/23 14:26> Mode of arrival: ambulatory <Jonny Shah APRN - Last Filed: 08/05/23 14:26> Limitations: no limitations <Jonny Shah APRN - Last Filed: 08/05/23 14:26> History of Present Illness HPI narrative: 42-year-old female presenting to the emergency department for evaluation left lower rib pain <Phill Beckham MD - Last Filed: 08/07/23 21:03> Related Data Home Medications: Home Medications Medication Instructions Recorded Confirmed budesonide-formoterol HFA 160 See Rx Instructions .Route .COMPLEX 04/04/23 07/20/23 mcg-4.5 mcg/actuation aerosol inhaler (Symbicort) lisinopril 40 mg tablet 40 mg PO DIRECTED 04/04/23 07/20/23 montelukast 10 mg tablet 10 mg PO DIRECTED 04/04/23 07/20/23 omeprazole 40 mg capsule,delayed 40 mg PO DIRECTED 04/04/23 07/20/23 release ergocalciferol (vitamin D2) 25,000 50,000 unit PO WEEKLY 06/26/23 07/20/23 unit capsule <Jonny Shah APRN - Last Filed: 08/05/23 14:26> Allergies/Adverse Reactions: Allergies Allergy/AdvReac Type Severity Reaction Status Date / Time Iodinated Contrast Media Allergy Severe Difficulty Verified 08/05/23 14:02 Breathing iodine Allergy Severe Difficulty Verified 08/05/23 14:02 Breathing aspirin Allergy Mild Hives Verified 08/05/23 14:02 Penicillins Allergy Mild Hives Verified 08/05/23 14:02 ibuprofen Allergy Hives Verified 08/05/23 14:02 clindamycin AdvReac Unknown SEVERE Verified 08/05/23 14:02 VOMITING nitrofurantoin AdvReac Unknown Vomiting Verified 08/05/23 14:02 <Jonny Shah APRN - Last Filed: 08/05/23 14:26> Review of Systems Review of Systems: All systems reviewed & are unremarkable except as noted in HPI and below <Phill Beckham MD - Last Filed: 08/07/23 21:03> [facility] Past Medical History Medical History: Medical History Asthma Chronic, continuous use of opioids GERD (gastroesophageal reflux disease) Herniated cervical disc C4 and C5 Hx of migraines Hypertension Obesity Screening mammogram, encounter for Vitamin D deficiency <Jonny Shah APRN - Last Filed: 08/05/23 14:26> Surgical History Surgical History: Surgical History (Reviewed 07/20/23 @ 13:43 by Luisa Kuo
--- NOTE | 2023-08-05 14:26 | ECG_ITS ---
SEE SCANNED COPY FOR CONFIRMED REPORT MTDD
[2023-08-05 15:00] LABS: Basophils Percent Auto 0.4 % (0.2-1.2); Eosinophils Absolute Auto 0.2 K/mm3 (0-0.3); Eosinophils Percent Auto 2.3 % (0-4.4); Hematocrit 37.5 % (37.0-47.0); Hemoglobin 12.5 g/dL (12.0-15.0); Immature Granulocyte Absolute 0.02 K/mm3 (0.00-0.031); Immature Granulocyte Percent A 0.3 % (0-0.5); Lymphocytes Absolute Auto 1.67 K/mm3 (0.9-3.2); Lymphocytes Percent Auto 21.8 % (18.3-44.2); Mean Corpuscular HGB Conc 33.3 g/dl (32-36); Mean Corpuscular Hemoglobin 30.3 pg (26-34); Mean Platelet Volume 10.6 fl (7.4-10.4); Monocytes Absolute Auto 0.8 K/mm3 (0.1-0.6); Monocytes Percent Auto 10.6 % (2.6-8.5); Neutrophils Percent Auto 64.6 % (45.5-73.1); Platelet Count Result 313 k/mm3 (150-375); Red Blood Count 4.12 M/mm3 (4.2-5.4); Red Cell Distribution Width 13.2 % (11.5-14.5); White Blood Count 7.7 K/mm3 (4.5-10.0)
[2023-08-05 15:08] LABS: Appearance Urine Cloudy (Clear); Bacteria Urine 2+ /hpf; Bilirubin Urine Negative (Negative); Blood Urine Negative (Negative); Color Urine Yellow (Yellow); Glucose Urine UA Negative (Negative); Ketones Urine Negative (Negative); Leukocyte Esterase Ur Negative LEU/UL (Negative); Nitrate Urine Negative (Negative); Non Pathogenic Casts 0-2; Protein Urine Negative (Negative); Specific Grav Ur 1.024 (1.001-1.035); Squamous Epithelial Cell Urine Many /hpf (Few); WBC Urine 0-5 /hpf (0-3)
[2023-08-05 15:10] LABS: Add Urine Microscopic? YES
[2023-08-05 15:12] LABS: Alanine Aminotransferase 24 U/L (6-35); Albumin Level 4.1 g/dL (3.5-5.1); Alkaline Phosphatase 69 U/L (38-126); Anion Gap 3 mmol/L (4-12); Aspartate Amino Transferase 21 U/L (14-36); Bilirubin,Total 0.2 mg/dL (0.2-1.3); Blood Urea Nitrogen 9 mg/dL (7-17); Calcium 8.8 mg/dL (8.4-10.2); Carbon Dioxide 25 mmol/L (22-30); Chloride 108 mmol/L (98-107); Estimated CRCL calculation 108 ml/min; Estimated Glomerular Filt Rate > 60; Glucose 123 mg/dL (65-110); Lipase 37 U/L (23-300); Potassium 4.1 mmol/L (3.4-5.0); Sodium 136 mmol/L (137-145)
[2023-08-05 15:22] LABS: Troponin I < 0.012 ng/mL (0.000-0.034)
[2023-08-05] MEDS: SODIUM CHLORIDE 0.9% IV 1,000 ML 999 ML IV CONT (16:11)
[2023-08-05 16:12] VITALS: BP 143/75; PULSE 74; RESP 18; O2SAT 99
== END 2023-08-05 17:12 | disposition home or self-care (01) ==
PROVIDERS: Nurse Practitioner Family; Emergency Provider Emergency Medicine; PCP Family Medicine
DX: N39.0 Urinary tract infection, site not specified (principal); R10.11 Right upper quadrant pain; E66.01 Morbid (severe) obesity due to excess calories; Z68.41 Body mass index [BMI] 40.0-44.9, adult; Z90.49 Acquired absence of other specified parts of digestive tract; K44.9 Diaphragmatic hernia without obstruction or gangrene
CPT/HCPCS: 36415; 74176; 80053; 81001; 81025; 83690; 84484; 85025; 93005; 96360; 99284; J7030

== ENCOUNTER 2023-08-13 13:18 | Emergency (ER) | payer OTHER, SELFPAY ==
[2023-08-13 13:32] VITALS: BP 152/91; PULSE 77; RESP 16; TEMP 36.9; O2SAT 99
--- NOTE | 2023-08-13 13:34 | ED.URI ---
HPI - URI/Sore Throat General Chief Complaint: Upper Respiratory Infection Stated Complaint: sore throat Time Seen by Provider: 08/13/23 14:08 Source: patient and RN notes reviewed Mode of arrival: ambulatory Limitations: no limitations History of Present Illness HPI Narrative: 42-year-old female presents with multiple concerns. She she started having a sore throat runny nose but 2-3 days ago. She denies taking any medications for the symptoms. Denies fever, body aches, chills, sweats. In a separate complaints she reports she was recently treated for urinary tract infection with cephalexin, she had to stop taking that because she thought she was having reaction. She reports she feels like her symptoms have not fully resolved. MD elicited complaint: sore throat Related Data Home Medications Medication Instructions Recorded Confirmed budesonide-formoterol HFA 160 See Rx Instructions .Route .COMPLEX 04/04/23 08/13/23 mcg-4.5 mcg/actuation aerosol inhaler (Symbicort) lisinopril 40 mg tablet 40 mg PO DIRECTED 04/04/23 08/13/23 montelukast 10 mg tablet 10 mg PO DIRECTED 04/04/23 08/13/23 omeprazole 40 mg capsule,delayed 40 mg PO DIRECTED 04/04/23 08/13/23 release ergocalciferol (vitamin D2) 25,000 50,000 unit PO WEEKLY 06/26/23 08/13/23 unit capsule Allergies Allergy/AdvReac Type Severity Reaction Status Date / Time Iodinated Contrast Media Allergy Severe Difficulty Verified 08/13/23 13:26 Breathing iodine Allergy Severe Difficulty Verified 08/13/23 13:26 Breathing aspirin Allergy Mild Hives Verified 08/13/23 13:26 cephalexin Allergy Mild Itching Verified 08/13/23 13:55 ibuprofen Allergy Mild Hives Verified 08/13/23 13:55 Penicillins Allergy Mild Hives Verified 08/13/23 13:26 clindamycin AdvReac Severe SEVERE Verified 08/13/23 13:55 VOMITING nitrofurantoin AdvReac Intermediate Vomiting Verified 08/13/23 13:55 Review of Systems Review of Systems: CONSTITUTIONAL: Denies malaise, chills, sweats, or fever. EYES: Denies visual changes, redness, or discharge. ENT: Reports rhinorrhea, sore throat. Denies congestion, sinus pain, otalgia CARDIOVASCULAR: Denies chest pain, palpitations, or edema. RESPIRATORY: Reports cough. Denies dyspnea. GASTROINTESTINAL: Denies abdominal pain, nausea, vomiting, diarrhea : Reports dysuria SKIN: Denies rash or itching. MUSCULOSKELETAL: Denies myalgia. NEUROLOGIC: Denies headache. All systems reviewed & are unremarkable except as noted in HPI and below PMFSH Past Medical History Medical History Asthma Chronic, continuous use of opioids GERD (gastroesophageal reflux disease) Herniated cervical disc C4 and C5 Hx of migraines Hypertension Obesity Screening mammogram, encounter for Vitamin D deficiency Surgical History Surgical History H/O partial thyroidectomy (~2003) History of cholecystectomy (~2017) History of hysteroscopy (07/02/23) Hysteroscopy with uterine curettings/ Incision and drainage of (4) left vulvar lesions S/P correction of deviated nasal septum (~10/18/22) Family History Family History Father Heart disease Brain cancer Hypertension Diabetes mellitus Lung cancer Grandparent Lung cancer Breast cancer, Onset Age: 50 maternal grandmother Mother Diabetes mellitus Hypertension Sibling Breast cancer, Onset Age: 49 sister Hypertension Diabetes mellitus Social History Social History Smoking packs per day: 0.5 Smoking cigarettes per day: 10.0 Years smoked: 22 Smoking pack-years: 11.00 Smoking status: Current every day smoker Tobacco type: cigarettes Second hand tobacco smoke exposure: Yes Alcohol intake: former Alcohol us
== END 2023-08-13 14:24 | disposition home or self-care (01) ==
PROVIDERS: Emergency Provider Nurse Practitioner; PCP Family Medicine
DX: J06.9 Acute upper respiratory infection, unspecified (principal); F17.210 Nicotine dependence, cigarettes, uncomplicated; J45.909 Unspecified asthma, uncomplicated; K21.9 Gastro-esophageal reflux disease without esophagitis; I10 Essential (primary) hypertension; E66.9 Obesity, unspecified; Z68.41 Body mass index [BMI] 40.0-44.9, adult; E55.9 Vitamin D deficiency, unspecified; Z90.79 Acquired absence of other genital organ(s)
CPT/HCPCS: 87081; 87086; 87088; 87880; 99213; G0463

== ENCOUNTER 2024-02-01 15:23 | Emergency (ER) | payer OTHER, SELFPAY ==
--- NOTE | ~2024-02-01 | CT_ITS ---
EXAMINATION: CT brain wo con DATE: 02/01/2024 16:17 INDICATION: Headache TECHNIQUE: Computed tomography (CT) of the head was performed without intravenous contrast. Sagittal and coronal reconstructions were performed. The mA was adjusted according to patient size. Iterative reconstruction technique was employed. The dose-length product was 681.00 mGy-cm. COMPARISON: Brain MR dated 10/26/2018 FINDINGS: No acute intracranial hemorrhage, acute infarction or abnormal extra axial fluid collection. Ventricl es are normal and symmetric. No mass/mass effect. The orbits and mastoid air cells are normal. There is mucus partially filling one of the posterior right ethmoid air cells. Mild mucosal thickening the anteromedial right maxillary sinus. Remainder of the paranasal sinuses are clear. IMPRESSION: 1. Normal brain. No acute intracranial process. Reviewed, dictated and finalized at location A.
[2024-02-01 15:35] VITALS: BP 161/64; PULSE 90; RESP 16; TEMP 36.3; O2SAT 100
[2024-02-01 16:45] VITALS: BP 128/91; PULSE 84; RESP 18; O2SAT 99
--- NOTE | 2024-02-01 17:14 | ED.GENADULT ---
HPI - General Adult General Chief complaint: Unspecified Stated complaint: back of head right side of face numb Time Seen by Provider: 02/01/24 15:53 History of Present Illness HPI narrative: Patient is a 43-year-old female who presents ER with right-sided headache. Ongoing over last day. Burning/ numbness that goes up the back side of her right head. No change in vision or hearing. No head injury. She saw her spine doctor he said it is not related to her issues at C4/C5 and recommended she come here. She cannot take any NSAIDs. No fevers. Related Data Home Medications Medication Instructions Recorded Confirmed budesonide-formoterol HFA 160 See Rx Instructions .Route .COMPLEX 04/04/23 08/13/23 mcg-4.5 mcg/actuation aerosol inhaler (Symbicort) lisinopril 40 mg tablet 40 mg PO DIRECTED 04/04/23 08/13/23 montelukast 10 mg tablet 10 mg PO DIRECTED 04/04/23 08/13/23 omeprazole 40 mg capsule,delayed 40 mg PO DIRECTED 04/04/23 08/13/23 release ergocalciferol (vitamin D2) 25,000 50,000 unit PO WEEKLY 06/26/23 08/13/23 unit capsule Allergies Allergy/AdvReac Type Severity Reaction Status Date / Time Iodinated Contrast Media Allergy Severe Difficulty Verified 08/13/23 13:26 Breathing iodine Allergy Severe Difficulty Verified 08/13/23 13:26 Breathing aspirin Allergy Mild Hives Verified 08/13/23 13:26 cephalexin Allergy Mild Itching Verified 08/13/23 13:55 ibuprofen Allergy Mild Hives Verified 08/13/23 13:55 Penicillins Allergy Mild Hives Verified 08/13/23 13:26 clindamycin AdvReac Severe SEVERE Verified 08/13/23 13:55 VOMITING nitrofurantoin AdvReac Intermediate Vomiting Verified 08/13/23 13:55 Review of Systems Review of Systems: All systems reviewed & are unremarkable except as noted in HPI and below Constitutional: Constitutional: Reports no additional constitutional complaints ENT: Reports system reviewed and no additional complaints, except as documented Cardiovascular: Cardiovascular: Reports no additional cardiovascular complaints Integumentary/Breasts: Skin/Breast: Reports system reviewed and no additional complaints, except as docu Neurologic: Reports system reviewed and no additional complaints, except as documented PMFSH Past Medical History Medical History Asthma Chronic, continuous use of opioids GERD (gastroesophageal reflux disease) Herniated cervical disc C4 and C5 Hx of migraines Hypertension Obesity Screening mammogram, encounter for Vitamin D deficiency Surgical History Surgical History H/O partial thyroidectomy (~2003) History of cholecystectomy (~2017) History of hysteroscopy (07/02/23) Hysteroscopy with uterine curettings/ Incision and drainage of (4) left vulvar lesions S/P correction of deviated nasal septum (~10/18/22) Family History Family History Father Heart disease Brain cancer Hypertension Diabetes mellitus Lung cancer Grandparent Lung cancer Breast cancer, Onset Age: 50 maternal grandmother Mother Diabetes mellitus Hypertension Sibling Breast cancer, Onset Age: 49 sister Hypertension Diabetes mellitus Social History Social History Smoking packs per day: 0.5 Smoking cigarettes per day: 10.0 Years smoked: 22 Smoking pack-years: 11.00 Smoking status: Current every day smoker Tobacco type: cigarettes Second hand tobacco smoke exposure: Yes Alcohol intake: former Alcohol use details: 2 DRINKS IN HER LIFE Substance use: never Substance use type: does not use Do You Feel Safe in your Home?: Yes Lack of Transportation: No Lack of Food: Never True Current Housing: I Have Housing Concerned About Future Housing: No
[2024-02-01 17:50] VITALS: BP 123/76; PULSE 86; RESP 20; TEMP 36.6; O2SAT 100
== END 2024-02-01 17:51 | disposition home or self-care (01) ==
PROVIDERS: Emergency Provider Emergency Medicine; PCP Family Medicine
DX: M54.81 Occipital neuralgia (principal); I10 Essential (primary) hypertension; J45.909 Unspecified asthma, uncomplicated; E55.9 Vitamin D deficiency, unspecified; E89.0 Postprocedural hypothyroidism; K21.9 Gastro-esophageal reflux disease without esophagitis; F17.210 Nicotine dependence, cigarettes, uncomplicated; Z90.49 Acquired absence of other specified parts of digestive tract
CPT/HCPCS: 70450; 99284

== ENCOUNTER 2025-01-19 13:24 | Emergency (ER) | payer BC, SELFPAY ==
[2025-01-19 13:25] VITALS: BP 154/82; PULSE 92; RESP 16; TEMP 36.8; O2SAT 100
--- NOTE | 2025-01-19 13:40 | ED.SKABFB ---
HPI - Skin/Abscess/Foreign Bdy General Chief complaint: Skin/Abscess/Foreign Body Stated complaint: earring back stuck in right ear patient presents to the [facility] with complaints of swelling, drainage, pain, redness to right lower earlobe piercing that began overnight. Patient noted having the 3rd earlobe piercing done about 6 weeks ago has been caring for these and denies any problems or concerns about 1 week ago she changed all of her earrings. Reports symptoms started when she woke this morning. Unable to get the earring back out today, came in for help. Denies fever, chills, body aches, or headache. Related Data Home Medications ?Medication ?Instructions ?Recorded ?Confirmed ?Last Taken ?Type lisinopril 40 mg tablet 40 mg PO DIRECTED 04/04/23 08/13/23 Unknown History omeprazole 40 mg capsule,delayed 40 mg PO DIRECTED 04/04/23 08/13/23 Unknown History release Allergies Allergy/AdvReac Type Severity Reaction Status Date / Time Iodinated Contrast Media Allergy Severe Difficulty Verified 01/19/25 13:38 Breathing iodine Allergy Severe Difficulty Verified 01/19/25 13:38 Breathing aspirin Allergy Mild Hives Verified 01/19/25 13:38 cephalexin Allergy Mild Itching Verified 01/19/25 13:38 ibuprofen Allergy Mild Hives Verified 01/19/25 13:38 Penicillins Allergy Mild Hives Verified 01/19/25 13:38 clindamycin AdvReac Severe SEVERE Verified 01/19/25 13:38 VOMITING nitrofurantoin AdvReac Intermediate Vomiting Verified 01/19/25 13:38 Review of Systems Constitutional: Constitutional: Reports as per HPI, Denies chills, Denies fatigue, Denies fever(s) and Denies weakness Eyes: Eyes: Reports no additional eye complaints ENT: Reports as per HPI Comments: eearring stuck in right earlobe Cardiovascular: Cardiovascular: Reports no additional cardiovascular complaints Respiratory: Respiratory: Reports no additional respiratory complaints Gastrointestinal: Gastrointestinal: Reports no additional gastrointestinal complaints Genitourinary: Genitourinary: Reports no additional female genitourinary complaints Musculoskeletal: Musculoskeletal: Reports no additional musculoskeletal complaints Integumentary/Breasts: Skin/Breast: Reports as per HPI, Reports erythema and Denies rash Comments: swelling and mild drainage right ear lobe Neurologic: Denies headache(s) Psychiatric: Psychiatric: Reports no additional psychiatric complaints Endocrine: Endocrine: Reports no additional endocrine complaints Hematologic/Lymphatic: Hematologic/Lymphatic: Reports no additional hematologic/lymphatic complaints Allergic/Immunologic: Allergic/Immunologic: Reports no additional allergic/immunologic complaints [facility] Past Medical History Medical History Asthma Chronic, continuous use of opioids GERD (gastroesophageal reflux disease) Herniated cervical disc C4 and C5 Hx of migraines Hypertension Obesity Screening mammogram, encounter for Vitamin D deficiency Surgical History Surgical History H/O partial thyroidectomy (~2003) History of cholecystectomy (~2017) History of hysteroscopy (07/02/23) Hysteroscopy with uterine curettings/ Incision and drainage of (4) left vulvar lesions S/P correction of deviated nasal septum (~10/18/22) Family History Family History Father Heart disease Brain cancer Hypertension Diabetes mellitus Lung cancer Grandparent Lung cancer Breast cancer, Onset Age: 50 maternal grandmother Mother Diabetes mellitus Hypertension Sibling Breast cancer, Onset Age: 49 sister Hypertension Diabetes mellitus Social History Social History Smoking packs per day: 0.5 Smoking cigarettes per day: 10.0 Years smoked: 22 Smoking pack-years: 11.00 Smoking status: Current every day smoker Tobacco type: cigarettes Second hand tobacco smoke exposure: Yes Alcohol intake: former Alcohol use details: 2 DRINKS IN HER LIFE Substance use: never Substance use type: does not use Do You Feel Safe in your Home?: Yes Lack of Transportation: No Lack of Food: Never True Current Housing: I Have Housing Concerned About Future Housing: No Difficulty Paying Gas/Electric Bills: No Difficulty Paying for Meds: No Currently Unemployed: No Education: High School Diploma/GED Difficulty w/ Childcare or Family Care: No Living arrangements: with family Additional living arrangements comments: Occupation/Education: occupation 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 Gender identity (if verbalized by the patient): Female Sexual Orientation (if Verbalized by the Patient): Straight or Heterosexual Spiritual care concerns: No Exam Const: General: healthy appearing and no acute distress Nutritional Appearance: well nourished Orientation/consciousness: patient oriented x3 Limitations: no limitations HENMT: Head: normal to inspection Ears: external ears abnormal Face/Nose/Sinus: Normal external nose present and Normal nares present Face and sinus: sinuses nontender Mouth: Yes Normal oral and palatal mucosa present and Yes lip normal Teeth and gingiva: dentition normal Throat: posterior oropharynx normal Other: swelling, redness, mild drainage from right ear lobe Neck: Neck: normal visual inspection and no lymphadenopathy Resp: Effort & Inspection: normal respiratory effort Auscultation: clear to auscultation bilaterally Cardio: Rate: regular rate Rhythm: regular rhythm Skin: General skin exam: normal color Rashes: no rashes Other: very small abscess surrounding lowest earring of right earlobe Neuro: General: patient oriented x3 Speech: normal speech Gait exam (Neuro): Normal gait present Psych: Mental Status: mental status grossly normal Affect: normal affect Attitude: cooperative Course Course Level of Care: Express Care Visit Vital Signs Vital signs: Vital Signs Temperature 98.3 F 01/19/25 13:25 Pulse Rate 92 01/19/25 13:25 Respiratory Rate 16 01/19/25 13:25 Blood Pressure 154/82 H 01/19/25 13:25 Pulse Oximetry 100 01/19/25 13:25 Oxygen Delivery Room Air 01/19/25 13:25 Temperature 98.3 F 01/19/25 13:25 Pulse Rate 92 01/19/25 13:25 Respiratory Rate 16 01/19/25 13:25 Blood Pressure 154/82 H 01/19/25 13:25 Pulse Oximetry 100 01/19/25 13:25 Oxygen Delivery Room Air 01/19/25 13:25 Procedures Foreign Body Removal Foreign Body #1: Foreign Body Removal Date: 01/19/25 Foreign Body Removal Time: 13:58 Time Out Performed: no Site: right Description of foreign body: other (earring back ) Sedation/Analgesia: other (lidocaine 1% 1 mL ) Technique: removal with forceps Confirmed by:: direct visualization Complications: none Post-procedure exam: awake, alert MDM - Skin/Abscess/Foreign Bdy MDM Narrative Medical decision making narrative: hearing back removed while in Express Care today. Will place patient on antibiotics for cellulitis. The patient was evaluated by myself in the express care. History is obtained from patient who is an independent historian and physical exam was performed. Available medical records were reviewed at this time. Exam findings show no acute concerns or changes; patient is non-toxic appearing and is in no distress. Patient is appropriate for outpatient treatment and follow-up. I have evaluated and discussed social determinants of health with the patient that could potentially impact subsequent diagnosis and treatment plans. Differential diagnosis and treatment plan were discussed with the patient. Patient agrees with discussion and after shared medical decision making agrees with plan of care. All questions were answered to the patient's satisfaction. Differential Diagnosis Differential diagnosis: Likely abscess of skin or subcutaneous tissue, cellulitis, insect bites, impetigo and contact dermatitis Medical Records Attestation: I reviewed the patient's medical records. Discharge Plan Discharge Clinical Impression: Cellulitis of right earlobe Patient Disposition: Home Condition: Stable Instructions: Antibiotic Form, Cellulitis (ED) Additional Instructions: Clean with soap and water only; Avoid using alcohol and peroxide. Elevate the affected area if possible Alternate Tylenol/ibuprofen for as needed for pain Acetaminophen(Tylenol) 650-1000mg every 4-6hours with max of 4000mg/day. Nonsteroidal anti-inflammatory agent (NSAIDs-ibuprofen): 400mg every 4-6hours with max 2400mg/day Take antibiotic until it's gone. Please schedule a follow up visit with your personal physician for further evaluation and treatment within 3-5days OR if your symptoms persist, change or worsen significantly before you can contact your personal physician then please, without delay, go to the emergency department for further evaluation. Patient Language: Faroese Prescriptions: New mupirocin [Centany] 2 % ointment 1 applic topical BID Qty: 22 0RF sulfamethoxazole-trimethoprim [Bactrim DS] 800-160 mg tablet 1 tablet PO Q12H Qty: 14 0RF No Action omeprazole 40 mg capsule,delayed release(DR/EC) 40 mg PO DIRECTED lisinopril 40 mg tablet 40 mg PO DIRECTED Follow-up/Referrals: Kristian,MD Param [Primary Care Provider, Unknown] Time of Disposition: 14:00
[2025-01-19] MEDS: LIDOCAINE 1% LOCAL INJ 2 ML AMPUL INFILTRATE (13:48)
== END 2025-01-19 14:08 | disposition home or self-care (01) ==
PROVIDERS: Emergency Provider Nurse Practitioner Family; PCP Family Medicine
DX: H60.11 Cellulitis of right external ear (principal); I10 Essential (primary) hypertension; F17.210 Nicotine dependence, cigarettes, uncomplicated
CPT/HCPCS: 99213; G0463; J2003